=== PATIENT | female | born 1945 | race Caucasian/White ===

== ENCOUNTER → 2017-02-03 | Outpatient (CLI) | payer MEDICARE, OTHER ==
[2017-02-03 14:14] LABS: EKG EKG PERFORMED
[2017-02-03 15:04] LABS: Basophils % (A) 1 %; CH 29.1; CHCM 31.3; Eosinophils # (A) 0.1 k/uL (0-0.7); Eosinophils % (A) 2 %; HCT 40.1 % (34.0-46.0); HGB 12.9 gm/dL (11.4-16.0); Hypochromasia Slight; Luc # (Auto) 0.15; Luc % (Auto) 3; Lymphocytes # (A) 2.9 k/uL (1.0-4.8); Lymphocytes % (A) 47 %; MCH 30.1 pg (25.0-35.0); MCHC 32.3 g/dL (31.0-37.0); MCV 93.2 fL (80.0-100.0); Mean Platelet Volume 6.6; Monocytes # (A) 0.3 k/uL (0-1.0); Monocytes % (A) 4 %; Neutrophils # (A) 2.7 k/uL (1.3-7.7); Neutrophils % (A) 44 %; WBC 6.1 k/uL (3.8-10.6); WBC (Perox) 6.19
[2017-02-03 15:10] LABS: Amorphous Sediment,Urine Rare /hpf; Appearance,Urine Clear (Clear); Bilirubin,Urine Negative (Negative); Glucose,Urine (UA) Negative (Negative); Ketones,Urine Negative (Negative); Leukocyte Esterase,Urine Moderate (Negative); Mucus,Urine Rare /hpf; Nitrite,Urine Negative (Negative); PH, Urine 5.5 (5.0-8.0); Particle Count 2387; Protein,Urine Negative (Negative); RBC,Urine 1 /hpf (0-5); Specific Gravity,Urine 1.012 (1.001-1.035); Squamous Epithelial Cell,Urine 12 /hpf (0-4); UA Billing (MACRO vs. MICRO) MICRO; Urobilinogen,Urine <2.0 mg/dL (<2.0); WBC,Urine 4 /hpf (0-5)
[2017-02-03 15:12] LABS: ALT 32 U/L (9-52); AST 25 U/L (14-36); Alkaline Phosphatase 91 U/L (38-126); Anion Gap 10 mmol/L; Blood Urea Nitrogen 11 mg/dL (7-17); Calcium 9.7 mg/dL (8.4-10.2); Carbon Dioxide 24 mmol/L (22-30); Chloride 106 mmol/L (98-107); Glucose 87 mg/dL (74-99); Non-African American GFR(MDRD) >60 (>60 ml/min/1.73 sqM); Potassium 4.4 mmol/L (3.5-5.1); Sodium 140 mmol/L (137-145); Total Bilirubin 0.4 mg/dL (0.2-1.3); Total Protein 6.7 g/dL (6.3-8.2)
[2017-02-03 15:31] LABS: Partial Thromboplastin Time 20.9 sec (22.0-30.0); Prothrombin Time 9.9 sec (9.0-12.0)
== END ==
LOC: LABWHC1 14:05
PROVIDERS: ATTEND Orthopaedic Surgery
DX: Z01.810 Encounter for preprocedural cardiovascular examination (principal); Z01.812 Encounter for preprocedural laboratory examination; Z51.81 Encounter for therapeutic drug level monitoring; Z79.01 Long term (current) use of anticoagulants
CPT/HCPCS: 80053; 81001; 85025; 85610; 85730; 86850; 86900; 86901; 87070; 93005

== ENCOUNTER 2017-02-12 10:33 | Inpatient (IN) | payer MEDICARE, OTHER ==
[2017-02-04 16:11] VITALS: BMI 31.8
[~2017-02-12 10:33] MED LIST: ACETAMINOPHEN TAB 500 MG TAB PO ONE; CLINDAMYCIN 900 MG in DEXTROSE 5% IN WATER 50 ML IVPB ONE; DEXAMETHASONE SOD PHOSPHATE 10 MG/ML 1 ML VIAL IV ONE; HYDROmorphone 1 MG/ML 1 ML SYRINGE IVP PRN; LIDOCAINE 1% 20 ML VIAL (10MG/ML) FOR IV START INTRADERMA PRN; MELOXICAM 7.5 MG TAB PO ONE; MIDAZOLAM 2 MG/2 ML VIAL IV PRN; ONDANSETRON 4 MG/2 ML VIAL IVP ONE; SCOPOLAMINE 1.5MG/72HR PATCH TRANSDERM ONE; TRANEXAMIC ACID 1,000 MG in SODIUM CHLORIDE 0.9% 100 ML IVPB ONE
[2017-02-12 10:58] VITALS: RESP 16
[2017-02-12] MEDS ORDERED: ROPIVACAINE 246.25 MG, EPINEPHrine 0.5 MG, KETOROLAC 30 MG, cloNIDine HCL/PF 80 MCG, WA... MISCELLANE ONE ×5 (11:02)
[2017-02-12] MEDS: LACTATED RINGERS 1,000 ML IV SCH (11:02)
[2017-02-12] MEDS ORDERED: CLINDAMYCIN 1,800 MG in SODIUM CHLORIDE 0.9% IRRIGATIO 3,000 ML IRRIGATION ONE (12:23)
[2017-02-12] MEDS ORDERED: SODIUM CHLORIDE 0.9% IRRIG 1,000 ML BTL IRRIGATION ONE (12:23)
[2017-02-12] MEDS ORDERED: PROPOFOL 10 MG/ML 20 ML VIAL IV ONE (12:23)
[2017-02-12] MEDS ORDERED: MIDAZOLAM 2 MG/2 ML VIAL ONE (12:23)
[2017-02-12] MEDS ORDERED: HEPARIN SODIUM,PORCINE 10,000 UNIT/ML 1 ML VIAL ONE (12:23)
[2017-02-12] MEDS ORDERED: LACTATED RINGERS 1,000 ML IV ONE (13:24)
--- NOTE | 2017-02-12 13:50 | XR ---
EXAMINATION TYPE: XR Hip Complete RT DATE OF EXAM: 02/12/2017 1:47 PM COMPARISON: NONE HISTORY: Right TECHNIQUE: One view submitted. FINDINGS: There is a prosthetic hip in near anatomic alignment. There is soft tissue edema and emphysema. IMPRESSION: 1. Postoperative change. Appears in near-anatomic alignment.
--- NOTE | 2017-02-12 13:58 | FL ---
EXAMINATION TYPE: FL guidance operating room DATE OF EXAM: 02/12/2017 1:46 PM CLINICAL HISTORY: Right hip replacement TECHNIQUE: Fluoroscopy. COMPARISON: None. FINDINGS: Fluoroscopic guidance was provided during hip replacement procedure performed by Dr. Shahram bean. A total of 37 seconds of fluoroscopic time was utilized during the procedure and 0 spot intraop erative images are acquired. IMPRESSION: As Above.
--- NOTE | 2017-02-12 14:05 | P.OP ---
Date of Procedure: 02/12/17 Preoperative Diagnosis: Severe osteoarthritis right hip Postoperative Diagnosis: Severe osteoarthritis right hip Procedure(s) Performed: Right total hip arthroplasty with a direct anterior approach Implants: Martin and nephew Polarstem size 3 standard Martin [employer] Nephew R3, 3 hole acetabular shell, 48 mm Martin [employer] Nephew reflection 6.5 mm cancellus screw, 20 mm 2 Martin [employer]hew R3, XLPE 20 acetabular liner Martin [employer] Nephew Oxinium femoral head 32 m, +0 All components were press-fit. The articulation is ceramic on polyethylene. Anesthesia: spinal Surgeon: Kurt Douglas Mortgage Underwriter #1: Vadim Sellers Estimated Blood Loss (ml): 130 (55 mL returned with Cell Saver) Pathology: other (Femoral head) Condition: stable Disposition: PACU Indications for Procedure: After failure of conservative treatment we discussed the surgical and nonsurgical treatment options at length. Patient wishes to proceed with a total hip arthroplasty with a direct anterior approach. Complications specific to this procedure were discussed at length, including but not limited to infection, leg length discrepancy, dislocation, and nerve injury. Patient is aware of all these complications and informed consent was obtained Operative Findings: The operative findings are consistent with severe osteoarthritis of the right hip Description of Procedure: Patient was seen and evaluated in the preoperative area, consent was reviewed, and the surgical site was marked with a skin marker. Patient was then brought to the operating room and given prophylactic antibiotics intravenously. 1 g of Tranexamic acid was also given. A spinal anesthetic was administered by the anesthesia department. A [place] catheter was then placed by the nursing staff. The patient was then placed on the [place] table with the bony prominences well- padded. The hip area was then prepped and draped in usual sterile fashion. A universal timeout was then performed, which confirmed the patient's name, surgical site, ALLERGIES, and procedure being performed. Next the incision site was located at 1 cm distal and 1 cm lateral to the anterior superior iliac spine. The skin and subcutaneous tissues were sharply incised. Incision was carefully dissected down to the fascia overlying the tensor fascia thomas muscle. This fascia was then incised in line with the incision. Next, using blunt finger dissection, the tensor fascia thomas muscle was dissected off its investing fascia. The muscle was then carefully retracted laterally with a cobra retractor over the lateral neck of the femur. Next, the circumflex vessels were identified and cauterized using the AquaMantis device. The anterior hip capsule was then exposed. The capsule was then opened and an inverted T fashion. Retention sutures were placed in the inferior arms of the capsule. Cobra retractors were then placed intracapsularly. The proximal femur was then visualized. The femoral neck was then osteotomized appropriate level above the lesser trochanter. Small amount of traction was placed with the [place] table. A small wedge of bone was then removed from the remaining femoral head. Next, using a corkscrew femoral head was easily removed from the acetabulum. On gross visual inspection, the femoral head had complete loss of articular cartilage in multiple periarticular osteophytes. Attention was then turned to the acetabulum. the acetabulum was exposed and any remaining labrum was excised. Sequential reaming of the acetabulum was performed using fluoroscopic guidance. When the appropriate size was reached, a trial was then placed. The position and fit of the trial was checked with fluoroscopy. The trial was then removed. Then, using fluoroscopic guidance, the final implant was impacted at 20 of anteversion and 40 of abduction, and fully seated in the acetabulum. 2 screws were then placed in the acetabulum. Again fluoroscopy was used to check position of the screws. Next, the liner was then impacted, with a 20 elevated liner located in the anterior superior quadrant. Component locking was confirmed. Attention was then directed to the femur. With the aid of the [place] table, the femur was externally rotated to approximately 130, extended, and abducted under the opposite leg. A side hook was then placed under the proximal femur, and the side hook elevator was used to elevate the proximal femur. Retractors were then placed. A capsular release was performed, as well as a release of the conjoined tendon, which afforded excellent visualization of the proximal femur. Next, a box osteotome was used to lateralize the proximal femur. A merchandise displayer was then used to locate the femoral canal. Sequential broaching was then performed with appropriate size which afforded excellent fixation in the proximal femur. A trial was then placed with appropriate head and neck, and the hip was gently reduced with the aid of the [place] table. Fluoroscopy was then used to check position of the components, as well as to ensure equal leg lengths. The hip was then gently dislocated and the trials were then removed. Final implants were then impacted and the hip was again reduced. Final fluoroscopic x-rays confirmed that the components were in anatomic position, as well as equal leg lengths. The hip was also taken through range of motion, and found to be stable. The hip was then copiously irrigated with antibiotic solution with pulsatile lavage. The hip was then irrigated with Irrisept solution. The soft tissues were then injected with a ropivacaine solution, which consisted of 246.25 mg of ropivacaine, 0.5 mg of epinephrine, 30 mg of Toradol, 80 g of clonidine, and 48.45 mL of sterile water, for a total of 100 mL of fluid injected. A second dose of 1 g of Tranexamic acid was also given. the fascia was then closed with 2-0 strata fix suture. The subcutaneous tissue was closed with 3-0 Vicryl. The subcuticular tissue was closed with 3-0 strata fix suture. The skin was then closed with Dermabond tape. The patient was then transferred to the recovery room in stable condition. The dental chairside assistant MAKAYLA Hunt was required due to the complexity of surgery, and the need for skilled front office medical assistant for positioning, draping, exposure, retraction, and closure of the wound.
[2017-02-12] MEDS ORDERED: DIAZEPAM 5 MG TAB PO PRN (14:23)
[2017-02-12] MEDS ORDERED: NALOXONE 0.4 MG/ML 1 ML VIAL IV PRN (14:23)
[2017-02-12] MEDS ORDERED: ONDANSETRON 4 MG/2 ML VIAL IVP PRN (14:23)
[2017-02-12] MEDS ORDERED: MAGNESIUM HYDROXIDE 2,400 MG/10 ML CUP PO PRN (14:23)
[2017-02-12] MEDS ORDERED: HYDROcodone/APAP 5-325MG 1 EACH TAB PO PRN (14:23)
[2017-02-12] MEDS ORDERED: HYDROmorphone 1 MG/ML 1 ML SYRINGE IVP PRN ×3 (14:23)
[2017-02-12] MEDS ORDERED: hydrOXYzine PAMOATE 25 MG CAP PO PRN (14:23)
[2017-02-12] MEDS ORDERED: MEPERIDINE 50 MG/ML SYRINGE IVP ONE (14:40)
[2017-02-12] MEDS ORDERED: TEMAZEPAM 15 MG CAP PO PRN (15:36)
[2017-02-12] MEDS: DIPHENOX-ATROP 2.5-0.025 MG 1 EACH TAB PO PRN (16:03)
[2017-02-12] MEDS: SODIUM CHLORIDE 0.9% 1,000 ML IV SCH (16:04)
[2017-02-12] MEDS: SERTRALINE 50 MG TAB PO SCH (16:04)
--- NOTE | 2017-02-12 16:24 | XR ---
EXAMINATION TYPE: XR Hip Limited RT DATE OF EXAM ORDERED: 02/12/2017 2:51 PM HISTORY: Right hip arthroplasty. COMPARISON: None. FINDINGS: A right arthroplasty has been performed. Prosthetic elements appear in good position. Ther e is some subcutaneous air present. IMPRESSION: STATUS POST RIGHT ARTHROPLASTY.
[2017-02-12] MEDS: ATORVASTATIN 10 MG TAB PO SCH (21:05)
[2017-02-12] MEDS: ASPIRIN 325 MG TAB PO SCH (21:05)
[2017-02-12] MEDS: HYDROcodone/APAP 5-325MG 1 EACH TAB PO PRN (21:06)
[2017-02-12] MEDS: CLINDAMYCIN 900 MG in DEXTROSE 5% IN WATER 50 ML IVPB SCH ×2 (21:09)
[2017-02-12] MEDS: SENNOSIDES-DOCUSATE SODIUM 1 EACH TAB PO SCH (21:10)
[2017-02-13] MEDS: CLINDAMYCIN 900 MG in DEXTROSE 5% IN WATER 50 ML IVPB SCH ×2 (04:21)
[2017-02-13] MEDS: HYDROcodone/APAP 5-325MG 1 EACH TAB PO PRN ×3 (04:45→21:51)
[2017-02-13] MEDS: LACTATED RINGERS 1,000 ML IV SCH (06:22)
[2017-02-13 06:55] LABS: Basophils % (A) 0 %; CH 29.2; CHCM 31.6; Eosinophils % (A) 0 %; HCT 31.2 % (34.0-46.0); HDW 2.36; HGB 10.2 gm/dL (11.4-16.0); Luc # (Auto) 0.15; Luc % (Auto) 2; Lymphocytes # (A) 1.2 k/uL (1.0-4.8); Lymphocytes % (A) 12 %; MCH 30.5 pg (25.0-35.0); MCHC 32.8 g/dL (31.0-37.0); MCV 92.8 fL (80.0-100.0); Mean Platelet Volume 6.8; Monocytes # (A) 0.5 k/uL (0-1.0); Monocytes % (A) 5 %; Neutrophils # (A) 7.6 k/uL (1.3-7.7); Neutrophils % (A) 80 %; RBC 3.36 m/uL (3.80-5.40); RDW 13.3 % (11.5-15.5); WBC 9.5 k/uL (3.8-10.6)
[2017-02-13] MEDS: ASPIRIN 325 MG TAB PO SCH ×2 (07:29→20:23)
[2017-02-13] MEDS: MELOXICAM 7.5 MG TAB PO SCH (07:30)
[2017-02-13] MEDS: SODIUM CHLORIDE 0.9% 1,000 ML IV SCH ×2 (07:31→16:51)
[2017-02-13] MEDS: ALPRAZolam 0.25 MG TAB PO PRN (08:01)
[2017-02-13] MEDS ORDERED: NON-FORMULARY DRUG (Aspirin [Adult Low Dose Aspirin Ec] 81 MG) PO SCH (09:00)
--- NOTE | 2017-02-13 11:27 | P.PN ---
Subjective Principal diagnosis: Status post right hip This is a pleasant 71-year-old female who is status post right total hip arthroplasty. Today's postoperative day #1. The patient is seen and evaluated at bedside this morning. Her pain is under fair control. She has no additional complaints at this time. She wishes to be discharged home tomorrow. Objective - Vital Signs Vital signs: Vital Signs Temp 98.1 F 02/13/17 07:38 Pulse 72 02/13/17 08:04 Resp 16 02/13/17 07:38 BP 103/60 02/13/17 08:40 Pulse Ox 97 02/13/17 07:38 Intake & Output 02/12/17 02/13/17 02/13/17 18:59 06:59 18:59 Intake Total 1657 Output Total 230 1300 Balance 1427 -1300 Weight 81.647 kg Intake: IV 1657 Output: Urine 100 1300 Estimated Blood Loss 130 Other: Voiding Method Indwelling Catheter Indwelling Catheter Indwelling Catheter - Exam The patient does not appear in acute distress. Alert and orientated 3. Dressing is clean dry and intact. Incision appears fine with no erythema or active drainage. Calf is soft and nontender. Good foot and ankle motion without difficulty. Sensation and circulatory status is intact. - Labs CBC & Chem 7: 02/13/17 06:24 Labs: Abnormal Lab Results - Last 24 Hours (Table) 02/13/17 Range/Units 06:24 RBC 3.36 L (3.80-5.40) m/uL Hgb 10.2 L (11.4-16.0) gm/dL Hct 31.2 L (34.0-46.0) % Assessment and Plan (1) Primary osteoarthritis of right hip Status: Acute (2) Status post right hip replacement Status: Acute Plan: Continue with routine postoperative care. Anticoagulation with aspirin. Physical therapy and pain control. Anticipate discharge to home with home care tomorrow.
--- NOTE | 2017-02-13 13:32 | P.CONS ---
History of Present Illness - Reason for Consult Consult date: 02/13/17 Medical management - History of Present Illness This is a 71-year-old female patient of Dr. 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 She recently had vein stripping on the right lower extremity with Dr. Caruso 2 months ago. Patient has been admitted to the hospital under the care of Dr. Kurt Douglas status post right total hip arthroplasty with anterior approach. Patient denies any concerns at this time. Patient is well controlled. Patient did have some low blood pressure readings but she was asymptomatic and able to ambulate. Hemoglobin has tried from 13.5 one month ago to 10.2. She has had good [place] output. She is anticipating discharge home tomorrow. Review of Systems All systems: negative Constitutional: Denies chills, Denies fever Eyes: denies blurred vision, denies pain Ears, nose, mouth and throat: Denies headache, Denies sore throat Cardiovascular: Denies chest pain, Denies shortness of breath Respiratory: Denies cough Gastrointestinal: Denies abdominal pain, Denies diarrhea, Denies nausea, Denies vomiting Genitourinary: Denies dysuria, Denies hematuria Musculoskeletal: Denies myalgias Musculoskeletal: right: hip pain Integumentary: Denies pruritus, Denies rash Neurological: Denies numbness, Denies weakness Psychiatric: Denies anxiety, Denies depression Endocrine: Denies fatigue, Denies weight change Past Medical History Past Medical History: Hyperlipidemia, Osteoarthritis (OA) Additional Past Medical History / Comment(s): hx. chronic diarrhea-possible gluten or lactose problem History of Any Multi-Drug Resistant Organisms: None Reported Past Surgical History: Bladder Surgery, Breast Surgery, Cholecystectomy, Orthopedic Surgery Additional Past Surgical History / Comment(s): Bilateral bunionectomy, cyst off back; colonoscopy, bladder suspension, cataract surg., breast biopsies-cyst, right lower extremity vein stripping done by Dr. Caruso 2 months ago Past Anesthesia/Blood Transfusion Reactions: Motion Sickness, Postoperative Nausea & Vomiting (PONV) Past Psychological History: Anxiety, Depression Smoking Status: Former smoker Past Alcohol Use History: None Reported Additional Past Alcohol Use History / Comment(s): quit smoking 1999, smoked < ppd since age of 17. She denies any medical marijuana, marijuana or street drug use. She lives at home with her . She does not use any aids for ambulation. Past Drug Use History: None Reported - Past Family History Mother Family Medical History: No Reported History Additional Family Medical History / Comment(s): Mother at age 72 with history of myocardial infarction and CVA. Father Additional Family Medical History / Comment(s): Father at age 64 had multiple CVAs with history of diabetes. Brother(s) Additional Family Medical History / Comment(s): Patient has 1 brother with no major medical problems. Sister(s) Additional Family Medical History / Comment(s): Patient has 2 sisters. One sister has history of vertigo and diarrhea. One sister has hypertension. Son(s) Additional Family Medical History / Comment(s): Patient has 3 sons. One has high iron levels. One is alcoholic. Medications and Allergies Home Medications Medication Instructions Recorded Confirmed Type ALPRAZolam [Xanax] 0.25 mg PO BID PRN 02/26/16 02/12/17 History Acetaminophen-Codeine 300-30mg 1 tab PO TID PRN 02/26/16 02/12/17 History [Tylenol #3] Aspirin [Adult Low Dose Aspirin EC] 81 mg PO DAILY 02/26/16 02/12/17 History Calcium Carbonate [Calcium] 1,200 mg PO DAILY 02/26/16 02/12/17 History Diphenoxylate HCl/Atropine 1 tab PO TID PRN 02/26/16 02/12/17 History [Lomotil] Ergocalciferol [Vitamin D2] 50,000 unit PO Q30D 02/26/16 02/12/17 History Simvastatin [Zocor] 20 mg PO HS 02/26/16 02/12/17 History Temazepam [Restoril] 15 mg PO HS PRN 02/26/16 02/12/17 History Ubidecarenone [Co Q-10] 100 mg PO DAILY 02/26/16 02/12/17 History Sertraline [Zoloft] 50 mg PO DAILY@1500 02/04/17 02/12/17 History Sulfamethoxazole/Trimethoprim 1 tab PO BID 02/12/17 02/12/17 History [Sulfamethoxazole-Tmp Ds Tablet] Allergies Allergy/AdvReac Type Severity Reaction Status Date / Time Penicillins Allergy swelling,skin Verified 02/12/17 14:34 blisters Physical Exam Vitals: Vital Signs Temp Pulse Resp BP BP BP Pulse Ox 02/13/17 08:40 103/60 98/52 02/13/17 08:04 72 101/61 02/13/17 07:38 98.1 F 72 16 87/55 97 02/13/17 02:38 97.0 F L 71 16 101/52 96 02/12/17 17:45 99/69 02/12/17 17:30 86/35 02/12/17 17:15 100/64 02/12/17 17:00 101/56 02/12/17 16:45 104/60 02/12/17 16:30 94/65 02/12/17 16:15 110/88 02/12/17 16:00 121/69 02/12/17 15:45 97/59 02/12/17 15:30 97.0 F L 90 16 110/60 99 02/12/17 14:48 97 16 106/52 98 02/12/17 14:30 90 16 113/58 98 02/12/17 14:20 98.5 F 93 16 107/52 99 Intake and Output 02/12/17 02/13/17 02/13/17 22:59 06:59 14:59 Intake Total 100 Output Total 1300 Balance 100 -1300 Intake: IV 100 Output: Urine 1300 Other: Voiding Method Indwelling Catheter Indwelling Catheter Weight 81.647 kg Gen: This is a 71-year-old female. She is resting in a chair at the bedside and appears to be in no acute distress. HEENT: Head is atraumatic, normocephalic. Pupils equal, round. Sclerae is anicteric. NECK: Supple. No JVD. No lymphadenopathy. No thyromegaly. LUNGS: Clear to auscultation. No wheezes or rhonchi. No intercostal retractions. HEART: Regular rate and rhythm. No murmur. ABDOMEN: Soft. Bowel sounds are present. No masses. No tenderness. EXTREMITIES: No pedal edema. No calf tenderness. Dressing to the right hip is dry and intact. No significant erythema or edema NEUROLOGICAL: Patient is awake, alert and oriented x3. Cranial nerves 2 through 12 are grossly intact. Results CBC & Chem 7: 04/08/17 06:24 Labs: Abnormal Lab Results - Last 24 Hours (Table) 02/13/17 Range/Units 06:24 RBC 3.36 L (3.80-5.40) m/uL Hgb 10.2 L (11.4-16.0) gm/dL Hct 31.2 L (34.0-46.0) % Assessment and Plan Plan: 1. Osteoarthritis of the right hip status post right total hip arthroplasty with anterior approach. Continue current pain management, physical therapy, incentive spirometry, DVT prophylaxis. 2. Hyperlipidemia. Continue Lipitor. 3. Chronic diarrhea with gluten and lactose intolerance. Continue special diet and Lomotil as needed. Patient will be admitted to the hospital for a minimum of 2 night stay. Discharge plan: Return home tomorrow Impression and plan of care have been directed as dictated by the signing physician. Cary Palomo nurse practitioner acting as scribe for signing physician. Time with Patient: Greater than 30
[2017-02-13] MEDS ORDERED: SERTRALINE 50 MG TAB PO SCH (15:00)
[2017-02-13] MEDS: SERTRALINE 50 MG TAB PO SCH (16:50)
[2017-02-13] MEDS: SENNOSIDES-DOCUSATE SODIUM 1 EACH TAB PO SCH (20:23)
[2017-02-13] MEDS: ATORVASTATIN 10 MG TAB PO SCH (20:23)
[2017-02-14] MEDS: HYDROcodone/APAP 5-325MG 1 EACH TAB PO PRN (02:55)
[2017-02-14] MEDS: LACTATED RINGERS 1,000 ML IV SCH (05:11)
[2017-02-14] MEDS ORDERED: HYDROcodone/APAP 7.5-325MG 1 EACH TAB PO PRN (07:44)
[2017-02-14] MEDS: MELOXICAM 7.5 MG TAB PO SCH (08:34)
[2017-02-14] MEDS: ASPIRIN 325 MG TAB PO SCH ×2 (08:34→21:42)
[2017-02-14] MEDS: HYDROcodone/APAP 7.5-325MG 1 EACH TAB PO PRN ×3 (08:34→20:21)
[2017-02-14] MEDS: DIPHENOX-ATROP 2.5-0.025 MG 1 EACH TAB PO PRN (08:35)
--- NOTE | 2017-02-14 09:55 | P.DS ---
Providers Date of admission: 02/12/17 10:33 Expected date of discharge: 02/14/17 Attending physician: Kurt Douglas Consults: 02/12/17 14:23 Consult Physician Routine Consulting Provider: Dominic Mcdonald Reason/Comments: Medical management Do you want consulting provider notified?: Yes Primary care physician: Dominic Mcdonald - Discharge Diagnosis(es) (1) Primary osteoarthritis of right hip Current Visit: Yes Status: Acute (2) Status post right hip replacement Current Visit: Yes Status: Acute Hospital Course: This is a pleasant 71-year-old female who was last seen in our office with complaints of right hip pain. Patient has known history of degenerative arthritis of the right hip and presented to discuss options. After discussion consideration the patient elected to proceed with a right total hip arthroplasty. Patient was seen preoperatively medically cleared for surgery by her primary care physician. Patient was admitted to [facility] and underwent right total hip arthroplasty. The procedure was performed without complications or sequelae. The patient has done well postoperatively. pain has been are reasonably controlled and is progressing with physical therapy. The patient states that she had some nausea this morning. She states that she did have 1 episode of emesis and diarrhea. She states that this is not a typical for her with her history of IBS. She was given a dose of Zofran and her nausea has resolved. The patient appears comfortable and in no acute distress. Dressing is clean dry and intact. Incision is fine with no erythema or active drainage. Calf is soft and nontender. The patient has good foot and ankle motion without difficulty. Lower extremities are neurovascularly intact. The patient would like to stay until tomorrow if her symptoms do not resolve. She may be discharged home later this afternoon if she is feeling better and she is cleared medically. Pertinent Studies: Laboratory Tests 02/13/17 06:24 WBC 9.5 RBC 3.36 L Hgb 10.2 L Hct 31.2 L MCV 92.8 MCH 30.5 MCHC 32.8 Patient Condition at Discharge: Good Plan - Discharge Summary New Discharge Prescriptions: Aspirin 325 mg PO BID #60 tab HYDROcodone/APAP 7.5-325MG [[place] 7.5] 1 - 2 each PO Q6HR PRN #90 tab PRN Reason: Pain Sennosides-Docusate Sodium [Senokot-S] 2 tab PO DAILY #60 tablet Discharge Medication List ALPRAZolam [Xanax] 0.25 mg PO BID PRN 02/26/16 [History] Acetaminophen-Codeine 300-30mg [Tylenol #3] 1 tab PO TID PRN 02/26/16 [History] Aspirin [Adult Low Dose Aspirin EC] 81 mg PO DAILY 02/26/16 [History] Calcium Carbonate [Calcium] 1,200 mg PO DAILY 02/26/16 [History] Diphenoxylate HCl/Atropine [Lomotil] 1 tab PO TID PRN 02/26/16 [History] Ergocalciferol [Vitamin D2] 50,000 unit PO Q30D 02/26/16 [History] Simvastatin [Zocor] 20 mg PO HS 02/26/16 [History] Temazepam [Restoril] 15 mg PO HS PRN 02/26/16 [History] Ubidecarenone [Co Q-10] 100 mg PO DAILY 02/26/16 [History] Sertraline [Zoloft] 50 mg PO DAILY@1500 02/04/17 [History] Sulfamethoxazole/Trimethoprim [Sulfamethoxazole-Tmp Ds Tablet] 1 tab PO BID 05/24 [History] Aspirin 325 mg PO BID #60 tab 02/14/17 [Rx] HYDROcodone/APAP 7.5-325MG [[place] 7.5] 1 - 2 each PO Q6HR PRN #90 tab 02/14/17 [ Rx] Sennosides-Docusate Sodium [Senokot-S] 2 tab PO DAILY #60 tablet 02/14/17 [Rx] Follow up Appointment(s)/Referral(s): [facility], [NON-STAFF] - 1 Week Kurt Douglas DO [Doctor of Osteopathic Medicine] - 2 Weeks Activity/Diet/Wound Care/Special Instructions: Weightbearing as tolerated with walker Follow hip precautions and use abductor pillow as instructed Daily dressing changes Keep incision clean and dry Hold Tylenol No. 3 while taking [place]. Hold aspirin 81 mg will taking aspirin 325 mg [facility] with questions or concerns [phone] Discharge Disposition: HOME WITH HOME HEALTH SERVICES
[2017-02-14 11:58] LABS: Anion Gap 9 mmol/L; Blood Urea Nitrogen 7 mg/dL (7-17); Calcium 9.2 mg/dL (8.4-10.2); Carbon Dioxide 23 mmol/L (22-30); Chloride 108 mmol/L (98-107); Glucose 96 mg/dL (74-99); Non-African American GFR(MDRD) >60 (>60 ml/min/1.73 sqM); Potassium 4.4 mmol/L (3.5-5.1); Sodium 140 mmol/L (137-145)
--- NOTE | 2017-02-14 12:03 | P.PN ---
Subjective This is a 71-year-old female patient of Dr. 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 She recently had vein stripping on the right lower extremity with Dr. Caruso 2 months ago. Patient has been admitted to the hospital under the care of Dr. Kurt Douglas status post right total hip arthroplasty with anterior approach. Patient denies any concerns at this time. Patient is well controlled. Patient did have some low blood pressure readings but she was asymptomatic and able to ambulate. Hemoglobin has tried from 13.5 one month ago to 10.2. She has had good [place] output. She is anticipating discharge home tomorrow. 02/14: Blood pressure is stable. Patient had some vomiting and diarrhea today. Pain medicine was increased. Zofran is available as needed for nausea and vomiting. Patient is on Lomotil. Anticipate discharge home tomorrow Objective - Vital Signs Vital signs: Vital Signs Temp 98.1 F 02/13/17 07:38 Pulse 72 02/13/17 08:04 Resp 16 02/13/17 07:38 BP 103/60 02/13/17 08:40 Pulse Ox 97 02/13/17 07:38 Intake & Output 02/12/17 02/13/17 02/13/17 18:59 06:59 18:59 Intake Total 1657 880 Output Total 230 1300 Balance 1427 -1300 880 Weight 81.647 kg Intake: IV 1657 400 Sodium Chloride 0.9% 1, 400 000 ml @ 50 mls/hr IV . Q20H [facility] Rx#:[id number] Oral 480 Output: Urine 100 1300 Estimated Blood Loss 130 Other: Voiding Method Indwelling Catheter Indwelling Catheter Indwelling Catheter - Exam Gen: This is a 71-year-old female. She is resting in a chair at the bedside and appears to be in no acute distress. HEENT: Head is atraumatic, normocephalic. Pupils equal, round. Sclerae is anicteric. NECK: Supple. No JVD. No lymphadenopathy. No thyromegaly. LUNGS: Clear to auscultation. No wheezes or rhonchi. No intercostal retractions. HEART: Regular rate and rhythm. No murmur. ABDOMEN: Soft. Bowel sounds are present. No masses. No tenderness. EXTREMITIES: No pedal edema. No calf tenderness. Dressing to the right hip is dry and intact. No significant erythema or edema NEUROLOGICAL: Patient is awake, alert and oriented x3. Cranial nerves 2 through 12 are grossly intact. - Labs CBC & Chem 7: 02/13/17 06:24 02/14/17 11:05 Labs: Abnormal Lab Results - Last 24 Hours (Table) 02/13/17 Range/Units 06:24 RBC 3.36 L (3.80-5.40) m/uL Hgb 10.2 L (11.4-16.0) gm/dL Hct 31.2 L (34.0-46.0) % Assessment and Plan Plan: 1. Osteoarthritis of the right hip status post right total hip arthroplasty with anterior approach. Continue current pain management, physical therapy, incentive spirometry, DVT prophylaxis. 2. Hyperlipidemia. Continue Lipitor. 3. Chronic diarrhea with gluten and lactose intolerance. Continue special diet and Lomotil as needed. Discharge plan: Return home tomorrow Impression and plan of care have been directed as dictated by the signing physician. Cary Palomo nurse practitioner acting as scribe for signing physician. Time with Patient: Greater than 30
[2017-02-14] MEDS: SERTRALINE 50 MG TAB PO SCH (15:02)
[2017-02-14] MEDS: SENNOSIDES-DOCUSATE SODIUM 1 EACH TAB PO SCH (21:42)
[2017-02-14] MEDS: ATORVASTATIN 10 MG TAB PO SCH (21:42)
[2017-02-15] MEDS: HYDROcodone/APAP 7.5-325MG 1 EACH TAB PO PRN ×3 (01:21→12:32)
[2017-02-15] MEDS: SODIUM CHLORIDE 0.9% 1,000 ML IV SCH (03:58)
[2017-02-15] MEDS: LACTATED RINGERS 1,000 ML IV SCH (05:53)
[2017-02-15 07:19] LABS: Basophils % (A) 1 %; CH 28.9; CHCM 31.4; Eosinophils # (A) 0.1 k/uL (0-0.7); Eosinophils % (A) 2 %; HCT 30.8 % (34.0-46.0); HDW 2.38; Luc # (Auto) 0.13; Luc % (Auto) 2; Lymphocytes # (A) 1.8 k/uL (1.0-4.8); Lymphocytes % (A) 29 %; MCH 30.1 pg (25.0-35.0); MCHC 32.5 g/dL (31.0-37.0); MCV 92.6 fL (80.0-100.0); Mean Platelet Volume 6.9; Monocytes # (A) 0.3 k/uL (0-1.0); Monocytes % (A) 6 %; Neutrophils # (A) 3.8 k/uL (1.3-7.7); Neutrophils % (A) 61 %; RBC 3.32 m/uL (3.80-5.40); RDW 13.2 % (11.5-15.5); WBC 6.3 k/uL (3.8-10.6); WBC (Perox) 6.58
[2017-02-15 08:40] VITALS: BP 97/51; PULSE 91; TEMP 97.3
[2017-02-15] MEDS: MELOXICAM 7.5 MG TAB PO SCH (08:41)
[2017-02-15] MEDS: ASPIRIN 325 MG TAB PO SCH (08:41)
[2017-02-15] MEDS: ALPRAZolam 0.25 MG TAB PO PRN (08:44)
[2017-02-15] MEDS: DIPHENOX-ATROP 2.5-0.025 MG 1 EACH TAB PO PRN (08:44)
--- NOTE | 2017-02-15 11:25 | P.PN ---
Subjective Principal diagnosis: Status post right hip This is a pleasant 71-year-old female who is status post right total hip arthroplasty. Today's postoperative day #2. The patient is seen and evaluated at bedside this morning. She is feeling much better today. Nausea has resolved. Her pain is under better control at this point. She has no new complaints at this time. Objective - Vital Signs Vital signs: Vital Signs Temp 97.3 F L 02/15/17 07:00 Pulse 91 02/15/17 08:00 Resp 16 02/15/17 08:00 BP 97/51 02/15/17 07:00 Pulse Ox 95 02/15/17 07:00 Intake & Output 02/14/17 02/15/17 02/15/17 18:59 06:59 18:59 Intake Total 790 Balance 790 Intake: Oral 790 Other: Voiding Method Toilet Toilet Toilet # Voids 1 2 - Exam The patient does not appear in acute distress. Alert and orientated 3. Dressing is clean dry and intact. Incision appears fine with no erythema or active drainage. Calf is soft and nontender. Good foot and ankle motion without difficulty. Sensation and circulatory status is intact. - Labs CBC & Chem 7: 02/15/17 06:48 02/14/17 11:05 Labs: Abnormal Lab Results - Last 24 Hours (Table) 02/14/17 02/15/17 Range/Units 11:05 06:48 RBC 3.32 L (3.80-5.40) m/uL Hgb 10.0 L (11.4-16.0) gm/dL Hct 30.8 L (34.0-46.0) % Chloride 108 H (98-107) mmol/L Assessment and Plan (1) Primary osteoarthritis of right hip Status: Acute (2) Status post right hip replacement Status: Acute Plan: Continue with routine postoperative care. Anticoagulation with aspirin. Physical therapy and pain control. The patient is orthopedic stable for discharge to home today. Please refer to discharge summary dictated yesterday.
--- NOTE | 2017-02-15 12:47 | P.PN ---
Subjective This is a 71-year-old female patient of Dr. 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 She recently had vein stripping on the right lower extremity with Dr. Caruso 2 months ago. Patient has been admitted to the hospital under the care of Dr. Kurt Douglas status post right total hip arthroplasty with anterior approach. Patient denies any concerns at this time. Patient is well controlled. Patient did have some low blood pressure readings but she was asymptomatic and able to ambulate. Hemoglobin has tried from 13.5 one month ago to 10.2. She has had good [place] output. She is anticipating discharge home tomorrow. 02/14: Blood pressure is stable. Patient had some vomiting and diarrhea today. Pain medicine was increased. Zofran is available as needed for nausea and vomiting. Patient is on Lomotil. Anticipate discharge home tomorrow 02/15: Nausea and diarrhea are improved. Vital signs are stable. She has been afebrile. Patient is controlled with oral medications. Patient will be discharged today in stable condition. She is on aspirin for DVT prophylaxis. Objective - Vital Signs Vital signs: Vital Signs Temp 97.3 F L 02/15/17 07:00 Pulse 91 02/15/17 08:00 Resp 16 02/15/17 08:00 BP 97/51 02/15/17 07:00 Pulse Ox 95 02/15/17 07:00 Intake & Output 02/14/17 02/15/17 02/15/17 18:59 06:59 18:59 Intake Total 790 Balance 790 Intake: Oral 790 Other: Voiding Method Toilet Toilet Toilet # Voids 1 2 - Exam Gen: This is a 71-year-old female. She is resting in a chair at the bedside and appears to be in no acute distress. HEENT: Head is atraumatic, normocephalic. Pupils equal, round. Sclerae is anicteric. NECK: Supple. No JVD. No lymphadenopathy. No thyromegaly. LUNGS: Clear to auscultation. No wheezes or rhonchi. No intercostal retractions. HEART: Regular rate and rhythm. No murmur. ABDOMEN: Soft. Bowel sounds are present. No masses. No tenderness. EXTREMITIES: No pedal edema. No calf tenderness. Dressing to the right hip is dry and intact. No significant erythema or edema NEUROLOGICAL: Patient is awake, alert and oriented x3. Cranial nerves 2 through 12 are grossly intact. - Labs CBC & Chem 7: 02/15/17 06:48 02/14/17 11:05 Labs: Abnormal Lab Results - Last 24 Hours (Table) 02/14/17 02/15/17 Range/Units 11:05 06:48 RBC 3.32 L (3.80-5.40) m/uL Hgb 10.0 L (11.4-16.0) gm/dL Hct 30.8 L (34.0-46.0) % Chloride 108 H (98-107) mmol/L Assessment and Plan Plan: 1. Osteoarthritis of the right hip status post right total hip arthroplasty with anterior approach. Continue current pain management, physical therapy, incentive spirometry, DVT prophylaxis. 2. Hyperlipidemia. Continue Lipitor. 3. Chronic diarrhea with gluten and lactose intolerance. Continue special diet and Lomotil as needed. Discharge plan: Return home Impression and plan of care have been directed as dictated by the signing physician. Cary Palomo nurse practitioner acting as scribe for signing physician. Time with Patient: Greater than 30
== END 2017-02-15 14:41 | disposition home health service (06) | DRG 470 ==
LOC: 2ORMAIN 10:33 → 3SUR 14:30
PROVIDERS: ADMIT Orthopaedic Surgery; ATTEND Orthopaedic Surgery
PROC: 0SR904A Replacement of Right Hip Joint with Ceramic on Polyethylene Synthetic Substitute, Uncemented, Open Approach (ICD-10-PCS; principal; 2017-02-12 12:30)
DX: M16.11 Unilateral primary osteoarthritis, right hip (principal); I95.9 Hypotension, unspecified; F32.9 Major depressive disorder, single episode, unspecified; E73.9 Lactose intolerance, unspecified; E78.5 Hyperlipidemia, unspecified; F41.9 Anxiety disorder, unspecified; K52.9 Noninfective gastroenteritis and colitis, unspecified; H40.9 Unspecified glaucoma; R11.2 Nausea with vomiting, unspecified; Z79.82 Long term (current) use of aspirin; Z79.899 Other long term (current) drug therapy; Z87.891 Personal history of nicotine dependence; Z88.0 Allergy status to penicillin; Z82.49 Family history of ischemic heart disease and other diseases of the circulatory system
CPT/HCPCS: 73501; 73502; 80048; 85025; 86850; 86891; 86900; 86901; 88300

== ENCOUNTER 2017-02-27 09:32 | Observation (INO) | payer MEDICARE, OTHER ==
[2017-02-27] MEDS ORDERED: MORPHINE SULFATE 4 MG/ML SYRINGE IV STA (10:25)
--- NOTE | 2017-02-27 10:29 | ED ---
General Adult HPI - General Chief complaint: Extremity Problem,Nontraumatic Stated complaint: poss blood clot Time Seen by Provider: 02/27/17 10:05 Source: patient, RN notes reviewed Mode of arrival: wheelchair Limitations: no limitations - History of Present Illness Initial comments: Patient is a pleasant 71-year-old female presenting to the emergency department complaining of right leg pain. Patient did have surgery 2 weeks ago, hip replacement. Patient had an episode of vomiting 6 days ago with sudden onset of swelling of the right anterior hip. Patient was told to discontinue physical therapy. Patient states discomfort has worsened since that time. Patient did not take her pain medicine today. Patient states there is some extension down the entire leg. No chest pain or dyspnea. No fevers. No redness. - Related Data Home Medications Medication Instructions Recorded Confirmed ALPRAZolam [Xanax] 0.25 mg PO BID PRN 02/26/16 02/27/17 Acetaminophen-Codeine 300-30mg 1 tab PO TID PRN 02/26/16 02/27/17 [Tylenol #3] Calcium Carbonate [Calcium] 1,200 mg PO DAILY 02/26/16 02/27/17 Diphenoxylate HCl/Atropine 1 tab PO TID PRN 02/26/16 02/27/17 [Lomotil] Ergocalciferol [Vitamin D2] 50,000 unit PO Q30D 02/26/16 02/27/17 Simvastatin [Zocor] 20 mg PO HS 02/26/16 02/27/17 Temazepam [Restoril] 15 mg PO HS PRN 02/26/16 02/27/17 Ubidecarenone [Co Q-10] 100 mg PO DAILY 02/26/16 02/27/17 Sertraline [Zoloft] 50 mg PO DAILY 02/04/17 02/27/17 Aspirin EC [Ecotrin] 325 mg PO BID 02/27/17 02/27/17 HYDROcodone/APAP 7.5-325MG [[place] 2 tab PO Q6HR PRN 02/27/17 02/27/17 7.5] Allergies Allergy/AdvReac Type Severity Reaction Status Date / Time Penicillins Allergy Swelling/Skin Verified 02/27/17 12:48 Blisters Review of Systems ROS Statement: Those systems with pertinent positive or pertinent negative responses have been documented in the HPI. ROS Other: All systems not noted in ROS Statement are negative. Constitutional: Denies: fever Eyes: Denies: eye pain ENT: Denies: ear pain Respiratory: Denies: cough Cardiovascular: Denies: palpitations Endocrine: Denies: fatigue Gastrointestinal: Denies: abdominal pain Genitourinary: Denies: dysuria Musculoskeletal: Denies: back pain Skin: Denies: rash Past Medical History Past Medical History: Hyperlipidemia, Osteoarthritis (OA) Additional Past Medical History / Comment(s): hx. chronic diarrhea-possible gluten or lactose problem History of Any Multi-Drug Resistant Organisms: None Reported Past Surgical History: Bladder Surgery, Breast Surgery, Cholecystectomy, Joint Replacement, Orthopedic Surgery Additional Past Surgical History / Comment(s): Bilateral bunionectomy, cyst off back; colonoscopy, bladder suspension, cataract surg., breast biopsies-cyst, right lower extremity vein stripping done by Dr. Caruso 2 months ago Past Anesthesia/Blood Transfusion Reactions: Motion Sickness, Postoperative Nausea & Vomiting (PONV) Past Psychological History: Anxiety, Depression Smoking Status: Former smoker Past Alcohol Use History: None Reported Additional Past Alcohol Use History / Comment(s): quit smoking 1999, smoked < ppd since age of 17. She denies any medical marijuana, marijuana or street drug use. She lives at home with her . She does not use any aids for ambulation. Past Drug Use History: None Reported - Past Family History Mother Family Medical History: No Reported History Additional Family Medical History / Comment(s): Mother at age 72 with history of myocardial infarction and CVA. Father Additional Family Medical History / Comment(s): Father at age 64 had multiple CVAs with history of diabetes. Brother(s) Additional Family Medical History / Comment(s): Patient has 1 brother with no major medical problems. Sister(s) Additional Family Medical History / Comment(s): Patient has 2 sisters. One sister has history of vertigo and diarrhea. One sister has hypertension. Son(s) Additional Family Medical History / Comment(s): Patient has 3 sons. One has high iron levels. One is alcoholic. General Exam Limitations: no limitations General appearance: alert, in no apparent distress Head exam: Present: atraumatic Eye exam: Present: normal appearance, PERRL ENT exam: Present: normal oropharynx Neck exam: Present: normal inspection Respiratory exam: Present: normal lung sounds bilaterally Cardiovascular Exam: Present: regular rate, normal rhythm Expanded Peripheral pulses: 2+: Dorsalis Pedis (R), Dorsalis Pedis (L) GI/Abdominal exam: Present: soft. Absent: tenderness Extremities exam: Present: calf tenderness, other (Right anterior incision is clean and dry and intact. There is swelling and tenderness, moderate beneath this. This appears consistent with hematoma.) Neurological exam: Present: alert. Absent: motor sensory deficit Psychiatric exam: Present: normal affect, normal mood Skin exam: Absent: erythema Course Vital Signs 02/27/17 09:45 Temperature 97.5 F L Pulse Rate 72 Respiratory 18 Rate Blood Pressure 107/69 O2 Sat by Pulse 100 Oximetry - Reevaluation(s) Reevaluation #1: 02/27/17 13:20 Case was discussed with practitioner Cathryn Smith who will call back. 02/27/17 13:34 Case again discussed with Cathryn Smith who recommends admission and Dr. Douglas will see for possible hematoma drainage. EKG Findings - EKG Comments: EKG Findings:: Normal sinus rhythm at 82. MD 134. QRS 72. QT 390. QTC 455. Normal axis. Normal QRS. Normal ST-T. Medical Decision Making - Lab Data Result diagrams: 02/27/17 10:35 02/27/17 10:35 Lab Results 02/27/17 02/27/17 02/27/17 Range/Units 10:35 10:35 10:35 WBC 9.6 (3.8-10.6) k/uL RBC 4.09 (3.80-5.40) m/uL Hgb 12.0 (11.4-16.0) gm/dL Hct 37.6 (34.0-46.0) % MCV 91.8 (80.0-100.0) fL MCH 29.3 (25.0-35.0) pg MCHC 31.9 (31.0-37.0) g/dL RDW 13.7 (11.5-15.5) % Plt Count 514 H D (150-450) k/uL Neutrophils % 70 % Lymphocytes % 21 % Monocytes % 4 % Eosinophils % 2 % Basophils % 1 % Neutrophils # 6.7 (1.3-7.7) k/uL Lymphocytes # 2.0 (1.0-4.8) k/uL Monocytes # 0.4 (0-1.0) k/uL Eosinophils # 0.2 (0-0.7) k/uL Basophils # 0.1 (0-0.2) k/uL PT 10.2 (9.0-12.0) sec INR 1.0 (<1.1) APTT 22.0 (22.0-30.0) sec Sodium 140 (137-145) mmol/L Potassium 4.1 (3.5-5.1) mmol/L Chloride 105 (98-107) mmol/L Carbon Dioxide 22 (22-30) mmol/L Anion Gap 13 mmol/L BUN 10 (7-17) mg/dL Creatinine 0.65 (0.52-1.04) mg/dL Est GFR (MDRD) Af Amer >60 (>60 ml/min/1.73 sqM) Est GFR (MDRD) Non-Af >60 (>60 ml/min/1.73 sqM) Glucose 102 H (74-99) mg/dL Calcium 10.0 (8.4-10.2) mg/dL Total Bilirubin 0.6 (0.2-1.3) mg/dL AST 24 (14-36) U/L ALT 30 (9-52) U/L Alkaline Phosphatase 151 H (38-126) U/L Total Creatine Kinase (30-135) U/L CK-MB (CK-2) (0.0-2.4) ng/mL CK-MB (CK-2) Rel Index Troponin I (0.000-0.034) ng/mL Total Protein 7.2 (6.3-8.2) g/dL Albumin 4.2 (3.5-5.0) g/dL 02/27/17 Range/Units 10:35 WBC (3.8-10.6) k/uL RBC (3.80-5.40) m/uL Hgb (11.4-16.0) gm/dL Hct (34.0-46.0) % MCV (80.0-100.0) fL MCH (25.0-35.0) pg MCHC (31.0-37.0) g/dL RDW (11.5-15.5) % Plt Count (150-450) k/uL Neutrophils % % Lymphocytes % % Monocytes % % Eosinophils % % Basophils % % Neutrophils # (1.3-7.7) k/uL Lymphocytes # (1.0-4.8) k/uL Monocytes # (0-1.0) k/uL Eosinophils # (0-0.7) k/uL Basophils # (0-0.2) k/uL PT (9.0-12.0) sec INR (<1.1) APTT (22.0-30.0) sec Sodium (137-145) mmol/L Potassium (3.5-5.1) mmol/L Chloride (98-107) mmol/L Carbon Dioxide (22-30) mmol/L Anion Gap mmol/L BUN (7-17) mg/dL Creatinine (0.52-1.04) mg/dL Est GFR (MDRD) Af Amer (>60 ml/min/1.73 sqM) Est GFR (MDRD) Non-Af (>60 ml/min/1.73 sqM) Glucose (74-99) mg/dL Calcium (8.4-10.2) mg/dL Total Bilirubin (0.2-1.3) mg/dL AST (14-36) U/L ALT (9-52) U/L Alkaline Phosphatase (38-126) U/L Total Creatine Kinase 63 (30-135) U/L CK-MB (CK-2) 0.6 (0.0-2.4) ng/mL CK-MB (CK-2) Rel Index 1.0 Troponin I <0.012 (0.000-0.034) ng/mL Total Protein (6.3-8.2) g/dL Albumin (3.5-5.0) g/dL - Radiology Data Radiology results: report reviewed (Ultrasound right upper leg shows hematoma. Doppler Ultrasound of the leg shows no evidence of DVT.), image reviewed (X-ray the right hip shows no acute process) Disposition Clinical Impression: Postoperative complication, Leg hematoma Disposition: ADMITTED IP TO THIS HOSP
[2017-02-27] MEDS ORDERED: MORPHINE SULFATE 10 MG/ML SYRINGE IM STA (10:39)
[2017-02-27] MEDS ORDERED: MORPHINE SULFATE 10 MG/ML SYRINGE IVP STA (10:40)
[2017-02-27 10:55] LABS: Basophils # (A) 0.1 k/uL (0-0.2); Basophils % (A) 1 %; CH 29.9; CHCM 32.7; Eosinophils # (A) 0.2 k/uL (0-0.7); Eosinophils % (A) 2 %; HCT 37.6 % (34.0-46.0); HDW 2.41; Luc % (Auto) 2; Lymphocytes % (A) 21 %; MCH 29.3 pg (25.0-35.0); MCHC 31.9 g/dL (31.0-37.0); MCV 91.8 fL (80.0-100.0); Mean Platelet Volume 6.4; Monocytes # (A) 0.4 k/uL (0-1.0); Monocytes % (A) 4 %; Neutrophils # (A) 6.7 k/uL (1.3-7.7); Neutrophils % (A) 70 %; RBC 4.09 m/uL (3.80-5.40); RDW 13.7 % (11.5-15.5); WBC 9.6 k/uL (3.8-10.6); WBC (Perox) 9.85
[2017-02-27 10:59] LABS: Prothrombin Time 10.2 sec (9.0-12.0)
[2017-02-27 11:07] LABS: ALT 30 U/L (9-52); AST 24 U/L (14-36); Alkaline Phosphatase 151 U/L (38-126); Anion Gap 13 mmol/L; Blood Urea Nitrogen 10 mg/dL (7-17); Carbon Dioxide 22 mmol/L (22-30); Chloride 105 mmol/L (98-107); Glucose 102 mg/dL (74-99); Non-African American GFR(MDRD) >60 (>60 ml/min/1.73 sqM); Potassium 4.1 mmol/L (3.5-5.1); Sodium 140 mmol/L (137-145); Total Bilirubin 0.6 mg/dL (0.2-1.3); Total Protein 7.2 g/dL (6.3-8.2)
[2017-02-27 11:20] LABS: Creatine Kinase 63 U/L (30-135)
[2017-02-27 11:34] LABS: Creatine Kinase MB 0.6 ng/mL (0.0-2.4); Troponin I <0.012 ng/mL (0.000-0.034)
--- NOTE | 2017-02-27 12:23 | US ---
EXAMINATION TYPE: US extremity nonvasc mass RT DATE OF EXAM: 02/27/2017 11:26 AM COMPARISON: no CLINICAL HISTORY: Hip replacement 2 weeks prior, pain, swelling and swelling at incision Complex fluid collection at incision measuring 12.0 x 2.1 x 6.3cm, this fluid collectin is non-vascul ar. IMPRESSION: Probable hematoma right hip at the incision.
--- NOTE | 2017-02-27 12:41 | US ---
EXAMINATION TYPE: US venous doppler duplex LE RT DATE OF EXAM: 02/27/2017 11:42 AM COMPARISON: NONE CLINICAL HISTORY: Pain. SIDE PERFORMED: TECHNIQUE: The lower extremity deep venous system is examined utilizing real time linear array sonog eddie with graded compression, doppler sonography and color-flow sonography. VESSELS IMAGED: External Iliac Vein (EIV) Common Femoral Vein Deep Femoral Vein Greater Saphenous Vein * Femoral Vein Popliteal Vein Small Saphenous Vein * Proximal Calf Veins (* superficial vessels) Patient had difficulty adducting her leg, making pop fossa pictures technically difficult. Right Leg: Negative for DVT IMPRESSION: 1. Right lower extremity negative for deep venous thrombosis.
--- NOTE | 2017-02-27 12:44 | XR ---
EXAMINATION TYPE: XR Hip Complete RT DATE OF EXAM: 02/27/2017 12:22 PM CLINICAL HISTORY: pain TECHNIQUE: AP and frogleg views of the right hip are obtained. COMPARISON: 02/12/2017 FINDINGS: There is no acute fracture/dislocation evident. Right hip prosthesis appears intact. The o verlying soft tissue appears unremarkable. IMPRESSION: 1. There is no acute fracture or dislocation. ICD 10 NO FRACTURE, INITIAL EVALUATION
[2017-02-27] MEDS ORDERED: NALOXONE 0.4 MG/ML 1 ML VIAL IV PRN (13:35)
[2017-02-27] MEDS: HYDROmorphone 1 MG/ML 1 ML SYRINGE IV PRN ×2 (14:41→18:40)
[2017-02-27 15:12] VITALS: BMI 26.5
[2017-02-27] MEDS ORDERED: DIPHENOX-ATROP 2.5-0.025 MG 1 EACH TAB PO PRN (17:09)
[2017-02-27] MEDS ORDERED: Acetaminophen-Codeine 300-30mg TAB PO PRN (17:09)
[2017-02-27] MEDS: HYDROcodone/APAP 7.5-325MG 1 EACH TAB PO PRN (21:20)
[2017-02-27] MEDS: ATORVASTATIN 10 MG TAB PO SCH (21:23)
[2017-02-27] MEDS: SODIUM CHLORIDE 0.9% 1,000 ML IV SCH (21:23)
[2017-02-28] MEDS: HYDROcodone/APAP 7.5-325MG 1 EACH TAB PO PRN ×3 (03:39→21:24)
[2017-02-28] MEDS: HYDROmorphone 1 MG/ML 1 ML SYRINGE IV PRN ×2 (08:29→18:17)
[2017-02-28] MEDS ORDERED: NON-FORMULARY DRUG (Ubidecarenone [Co Q-10] 100 MG) PO SCH (09:00)
[2017-02-28] MEDS: CALCIUM CARBONATE 500 MG CHEWABLE PO SCH (10:47)
[2017-02-28] MEDS: SERTRALINE 50 MG TAB PO SCH (10:47)
--- NOTE | 2017-02-28 11:10 | P.HPOR ---
History of Present Illness H&P Date: 02/28/17 Chief Complaint: Right hip pain/swelling This is a 71-year-old female who is status post total right hip arthroplasty with direct anterior approach on for 717. The patient had been doing pretty well at home. She states that she had an episode of vomiting on 02/21/2017 and didn't feel well. She states that after that she noticed increased swelling to the right hip and increase right lower extremity pain. She states that she does have pain in the low back that radiates down the back of the leg. She is also complaining of some numbness and tingling to the lower leg. She's had no fever or chills. She is admitted to our service for further evaluation and pain management. Past Medical History Past Medical History: Hyperlipidemia, Osteoarthritis (OA) Additional Past Medical History / Comment(s): hx. chronic diarrhea-possible gluten or lactose problem History of Any Multi-Drug Resistant Organisms: None Reported Past Surgical History: Bladder Surgery, Breast Surgery, Cholecystectomy, Joint Replacement, Orthopedic Surgery Additional Past Surgical History / Comment(s): Bilateral bunionectomy, cyst off back; colonoscopy, bladder suspension, cataract surg., breast biopsies-cyst, right lower extremity vein stripping done by Dr. Caruso 2 months ago Past Anesthesia/Blood Transfusion Reactions: Motion Sickness, Postoperative Nausea & Vomiting (PONV) Past Psychological History: Anxiety, Depression Smoking Status: Former smoker Past Alcohol Use History: None Reported Additional Past Alcohol Use History / Comment(s): quit smoking 1999, smoked < ppd since age of 17. She denies any medical marijuana, marijuana or street drug use. She lives at home with her . She does not use any aids for ambulation. Past Drug Use History: None Reported - Past Family History Mother Family Medical History: No Reported History Additional Family Medical History / Comment(s): Mother at age 72 with history of myocardial infarction and CVA. Father Additional Family Medical History / Comment(s): Father at age 64 had multiple CVAs with history of diabetes. Brother(s) Additional Family Medical History / Comment(s): Patient has 1 brother with no major medical problems. Sister(s) Additional Family Medical History / Comment(s): Patient has 2 sisters. One sister has history of vertigo and diarrhea. One sister has hypertension. Son(s) Additional Family Medical History / Comment(s): Patient has 3 sons. One has high iron levels. One is alcoholic. Medications and Allergies Home Medications Medication Instructions Recorded Confirmed Type ALPRAZolam [Xanax] 0.25 mg PO BID PRN 02/26/16 02/27/17 History Acetaminophen-Codeine 300-30mg 1 tab PO TID PRN 02/26/16 02/27/17 History [Tylenol #3] Calcium Carbonate [Calcium] 1,200 mg PO DAILY 02/26/16 02/27/17 History Diphenoxylate HCl/Atropine 1 tab PO TID PRN 02/26/16 02/27/17 History [Lomotil] Ergocalciferol [Vitamin D2] 50,000 unit PO Q30D 02/26/16 02/27/17 History Simvastatin [Zocor] 20 mg PO HS 02/26/16 02/27/17 History Temazepam [Restoril] 15 mg PO HS PRN 02/26/16 02/27/17 History Ubidecarenone [Co Q-10] 100 mg PO DAILY 02/26/16 02/27/17 History Sertraline [Zoloft] 50 mg PO DAILY 02/04/17 02/27/17 History Aspirin EC [Ecotrin] 325 mg PO BID 02/27/17 02/27/17 History HYDROcodone/APAP 7.5-325MG [[place] 2 tab PO Q6HR PRN 02/27/17 02/27/17 History 7.5] Allergies Allergy/AdvReac Type Severity Reaction Status Date / Time Penicillins Allergy Swelling/Skin Verified 02/27/17 12:48 Blisters Physical Examination This is a pleasant 71-year-old female in no acute distress. She is alert and oriented 3. She moves around in the bed fairly easily. Exam of the low back reveals no obvious deformity. There is pain with palpation about the lower lumbar region. There is mild paraspinal musculature tenderness on the right. Exam of the lower extremities reveals some fluctuance about the anterolateral aspect of the right hip. There is no erythema or increased warmth. The area is soft with mild tenderness. There is pain on palpation about the posterior aspect of the thigh down to the knee. She has full foot and ankle motion without difficulty. She has 5/5 strength with dorsiflexion of the great toe against resistance bilaterally. Straight leg raise produces minimal pain. There is no hip irritability with logroll. Neurovascular status to the lower extremities intact. Results Right hip x-ray shows implants in good position and alignment. No evidence of loosening and no evidence of fracture. - Labs Result Diagrams: 02/27/17 10:35 02/27/17 10:35 Assessment and Plan (1) Leg hematoma Status: Acute (2) Status post right hip replacement Status: Acute (3) Low back pain potentially associated with radiculopathy Status: Acute Plan: The clinical and exercises are discussed with the patient and her . I have discussed the case with Dr. Kurt Douglas. Dr. Douglas would like a computed tomography scan of the right hip as well as lumbar spine x-rays. I have ordered an antibiotic for prophylaxis. The patient will be evaluated by Dr. Douglas after the radiographic studies are available. The patient may resume her diet for now.
--- NOTE | 2017-02-28 11:24 | XR ---
EXAMINATION TYPE: XR lumbar spine 2 or 3V DATE OF EXAM: 02/28/2017 11:15 AM COMPARISON: NONE HISTORY: Low back pain TECHNIQUE: 3 view lumbar spine FINDINGS: There 5 lumbar-type vertebral bodies. Pedicles are intact. Mild is loss of disc height may be present. Vertebral body alignment is normal. The body heights are preserved. Vascular calcificatio n is within the aorta. IMPRESSION: 1. Suggestion of mild degenerative disc change
--- NOTE | 2017-02-28 11:50 | CT ---
EXAMINATION TYPE: CT hip RT wo con DATE OF EXAM: 02/28/2017 11:25 AM COMPARISON: NONE HISTORY: Right hip pain and back pain CT DLP: 322.1 mGycm Automated exposure control for dose reduction was used. FINDINGS: No acute fractures are evident. Right hip prosthesis is present. Soft tissues are unremarkable. There is some limitation due to beam hardening artifact. Superficial to the thigh musculature is a low-density collection measuring 5.6 x 2.5 x 12.4 cm likely may be an anterior lateral hematoma. IMPRESSION: 1. ANTEROLATERAL SUBCUTANEOUS HEMATOMA. 2. OSSEOUS STRUCTURES APPEAR INTACT WITH RIGHT HIP PROSTHESIS IN POSITION.
[2017-02-28] MEDS: CLINDAMYCIN 600 MG in DEXTROSE 5% IN WATER 50 ML IVPB SCH ×4 (13:13→18:17)
--- NOTE | 2017-02-28 13:23 | P.CONS ---
History of Present Illness - Reason for Consult Consult date: 02/28/17 Medical Management Requesting physician: Kurt Douglas - Chief Complaint Right hip Hematoma post Right PRESTON. - History of Present Illness This is a 71-year-old female patient of Dr. 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 She recently had vein stripping on the right lower extremity with Dr. Caruso 2 months ago. Patient has been admitted to the hospital under the care of Dr. Kurt Douglas status post right total hip arthroplasty with anterior approach back on 02/12/2017, patient has done well after surgery and she was discharged home patient stated that she woke up on Wednesday morning and that she was not feeling well and all of a sudden she felt nauseated and felt a popping sensation in the right hip and developed to have a significant swelling at the incision that created a lot of pressure for her on, patient ended up coming to the emergency department and she was found to have a hematoma at the site of the right hip and subsequent she was admitted and orthopedic surgery and I was asked to see her for medical management. Patient is sitting up in bed in no apparent distress she denies any chest pain, shortness breath, she has no dizziness, she is at hypertensive, her hemoglobin is stable, she does have a hematoma on the right side without any evidence of any neural vascular compromise. Review of Systems Constitutional: Denies anorexia, Denies lethargy, Denies malaise, Denies weakness, Denies weight gain, Denies weight loss Eyes: denies blurred vision, denies bulging eye, denies decreased vision, denies diplopia Ears: deny: decreased hearing Ears, nose, mouth and throat: Denies dysphagia, Denies neck lump, Denies swelling in throat, Denies sore throat Cardiovascular: Denies chest pain, Denies dyspnea on exertion, Denies paroxysmal nocturnal dyspnea, Denies phlebitis, Denies rapid heart beat, Denies shortness of breath Respiratory: Denies congestion, Denies cough with sputum, Denies home oxygen, Denies sleep apnea, Denies snoring, Denies wheezing Gastrointestinal: Reports change in bowel habits, Reports diarrhea, Reports nausea, Denies abdominal pain, Denies bloating, Denies BRBPR, Denies early satiety, Denies heartburn, Denies loss of appetite, Denies melena, Denies vomiting Genitourinary: Denies dysuria, Denies hematuria Menstruation: Denies postmenopausal Musculoskeletal: Reports gait dysfunction Musculoskeletal: right: hip pain, hip stiffness, hip swelling, absent: ankle pain, ankle stiffness, ankle swelling, as per HPI, elbow pain, elbow stiffness, elbow swelling, foot pain, foot stiffness, foot swelling, hand pain, hand stiffness, hand swelling, knee pain, knee stiffness, knee swelling, shoulder pain, shoulder stiffness, shoulder swelling, wrist pain, wrist stiffness, wrist swelling Integumentary: Denies pruritus, Denies rash Neurological: Denies numbness, Denies weakness Psychiatric: Denies anxiety, Denies depression Endocrine: Denies fatigue, Denies weight change Past Medical History Past Medical History: Hyperlipidemia, Osteoarthritis (OA) Additional Past Medical History / Comment(s): hx. chronic diarrhea-possible gluten or lactose problem History of Any Multi-Drug Resistant Organisms: None Reported Past Surgical History: Bladder Surgery, Breast Surgery, Cholecystectomy, Joint Replacement, Orthopedic Surgery Additional Past Surgical History / Comment(s): Bilateral bunionectomy, cyst off back; colonoscopy, bladder suspension, cataract surg., breast biopsies-cyst, right lower extremity vein stripping done by Dr. Caruso 2 months ago Past Anesthesia/Blood Transfusion Reactions: Motion Sickness, Postoperative Nausea & Vomiting (PONV) Past Psychological History: Anxiety, Depression Smoking Status: Former smoker Past Alcohol Use History: None Reported Additional Past Alcohol Use History / Comment(s): quit smoking 1999, smoked < ppd since age of 17. She denies any medical marijuana, marijuana or street drug use. She lives at home with her . She does not use any aids for ambulation. Past Drug Use History: None Reported - Past Family History Mother Family Medical History: No Reported History Additional Family Medical History / Comment(s): Mother at age 72 with history of myocardial infarction and CVA. Father Additional Family Medical History / Comment(s): Father at age 64 had multiple CVAs with history of diabetes. Brother(s) Additional Family Medical History / Comment(s): Patient has 1 brother with no major medical problems. Sister(s) Additional Family Medical History / Comment(s): Patient has 2 sisters. One sister has history of vertigo and diarrhea. One sister has hypertension. Son(s) Additional Family Medical History / Comment(s): Patient has 3 sons. One has high iron levels. One is alcoholic. Medications and Allergies Home Medications Medication Instructions Recorded Confirmed Type ALPRAZolam [Xanax] 0.25 mg PO BID PRN 02/26/16 02/27/17 History Acetaminophen-Codeine 300-30mg 1 tab PO TID PRN 02/26/16 02/27/17 History [Tylenol #3] Calcium Carbonate [Calcium] 1,200 mg PO DAILY 02/26/16 02/27/17 History Diphenoxylate HCl/Atropine 1 tab PO TID PRN 02/26/16 02/27/17 History [Lomotil] Ergocalciferol [Vitamin D2] 50,000 unit PO Q30D 02/26/16 02/27/17 History Simvastatin [Zocor] 20 mg PO HS 02/26/16 02/27/17 History Temazepam [Restoril] 15 mg PO HS PRN 02/26/16 02/27/17 History Ubidecarenone [Co Q-10] 100 mg PO DAILY 02/26/16 02/27/17 History Sertraline [Zoloft] 50 mg PO DAILY 02/04/17 02/27/17 History Aspirin EC [Ecotrin] 325 mg PO BID 02/27/17 02/27/17 History HYDROcodone/APAP 7.5-325MG [[place] 2 tab PO Q6HR PRN 02/27/17 02/27/17 History 7.5] Allergies Allergy/AdvReac Type Severity Reaction Status Date / Time Penicillins Allergy Swelling/Skin Verified 02/27/17 12:48 Blisters Physical Exam Vitals: Vital Signs Temp Pulse Pulse Resp BP BP Pulse Ox 02/28/17 07:00 97.5 F L 89 18 110/58 98 02/27/17 22:37 97.3 F L 92 16 129/61 98 02/27/17 15:24 18 02/27/17 15:00 97.8 F 81 18 140/69 98 02/27/17 13:44 97.4 F L 77 18 136/63 98 Intake and Output 02/27/17 02/28/17 02/28/17 22:59 06:59 14:59 Intake Total 590 590 Balance 590 590 Intake: Oral 590 590 Other: Voiding Method Toilet # Voids 2 2 Weight 68.039 kg - Constitutional General appearance: no acute distress - EENT Eyes: anicteric sclerae, EOMI, PERRLA, no ptosis, no scleral icterus, normal appearance ENT: hearing grossly normal, NA/AT, normal oropharynx, no thrush Ears: bilateral: normal - Neck Neck: no lymphadenopathy, normal ROM, no rigidity, no stridor, no thyromegaly Carotids: bilateral: upstroke normal Thyroid: bilateral: normal size - Respiratory Respiratory: bilateral: diminished, negative: dullness, rales, rhonchi, wheezing , prolonged expiration, prolonged inspiration - Cardiovascular Rhythm: regular Heart sounds: normal: S1, S2 Abnormal Heart Sounds: no systolic murmur, no S3 Gallop, no S4 Gallop - Gastrointestinal General gastrointestinal: normal bowel sounds, soft, no splenomegaly, no tenderness, no umbilical hernia, no ventral hernia - Integumentary Integumentary: normal, normal turgor - Neurologic Neurologic: CNII-XII intact - Musculoskeletal Musculoskeletal: strength equal bilaterally - Psychiatric Psychiatric: A&O x's 3, appropriate affect, intact judgment & insight Results CBC & Chem 7: 02/27/17 10:35 02/27/17 10:35 Assessment and Plan Plan: Assessment and plan: 1. Right hip hematoma. Hold aspirin, continue ice packs, computed tomography scan of the right hip will be obtained as recommended by orthopedic surgery. No plan for immediate surgical intervention at this time. 2. Status post right total hip arthroplasty direct anterior approach. We will continue to monitor the patient very closely. 3. Hyperlipidemia. Continue Lipitor. 4. Chronic diarrhea with gluten and lactose intolerance. Continue special diet and Lomotil as needed. 5. DVT prophylaxis. Hold aspirin for now, continue knee-high LAKSHMI hose. 6. GI prophylaxis. Continue Protonix 40 mg orally once every day. 7. Thank you for the consult we will follow the patient along with you.
[2017-02-28] MEDS: SODIUM CHLORIDE 0.9% 1,000 ML IV SCH (18:16)
[2017-02-28] MEDS: ATORVASTATIN 10 MG TAB PO SCH (21:24)
[2017-03-01] MEDS: CLINDAMYCIN 600 MG in DEXTROSE 5% IN WATER 50 ML IVPB SCH ×4 (00:18→06:19)
[2017-03-01] MEDS: HYDROmorphone 1 MG/ML 1 ML SYRINGE IV PRN (00:40)
[2017-03-01] MEDS: ALPRAZolam 0.25 MG TAB PO PRN ×2 (02:23→20:25)
[2017-03-01] MEDS: CALCIUM CARBONATE 500 MG CHEWABLE PO SCH (07:39)
[2017-03-01] MEDS: HYDROcodone/APAP 7.5-325MG 1 EACH TAB PO PRN ×2 (07:49→20:25)
[2017-03-01] MEDS: SERTRALINE 50 MG TAB PO SCH (08:30)
--- NOTE | 2017-03-01 10:27 | P.PN ---
Subjective Principal diagnosis: Right hip hematoma, status post right total hip arthroplasty This is a 71-year-old female who is status post right total hip arthroplasty. The patient is 2 weeks postop. She's developed postoperative hematoma near her surgical incision. She seen and evaluated at bedside with Dr. Kurt Douglas. She complains of pain in her anterior thigh and posterior thigh. She has worsening pain with ambulation and weightbearing. Objective - Vital Signs Vital signs: Vital Signs Temp 97.7 F 03/01/17 07:00 Pulse 79 03/01/17 07:00 Resp 18 03/01/17 07:00 BP 103/54 03/01/17 07:00 Pulse Ox 97 03/01/17 07:00 Intake & Output 02/28/17 03/01/17 03/01/17 18:59 06:59 18:59 Intake Total 830 Balance 830 Weight 68.039 kg Intake: IV 240 Clindamycin 600 mg In 100 Dextrose 5% in Water 50 ml @ 100 mls/hr IVPB Q6HR JOLEEN Rx#:[id number] Sodium Chloride 0.9% 1, 140 000 ml @ 20 mls/hr IV . Q24H JOLEEN Rx#:[id number] Oral 590 Other: Voiding Method Toilet Toilet # Voids 14 3 1 # Bowel Movements 1 # Emeses 1 - Exam The patient does not appear in acute distress. She is alert and orientated 3. Incision appears fine with no erythema or active drainage. She does have soft tissue swelling around the incision and lateral to the incision consistent with hematoma. She is able to perform active hip motion without pain out of proportion. She is able to perform knee extension and flexion. Sensation and circulatory status is intact. - Labs CBC & Chem 7: 02/27/17 10:35 02/27/17 10:35 Assessment and Plan (1) Leg hematoma Status: Acute (2) Status post right hip replacement Status: Acute Plan: The clinical and CT findings were discussed with the patient at bedside. We discussed some of her symptoms may be related to her back as well. We will continue with conservative management with moist heat applied to the area of the hematoma. The patient was started on Solu-Medrol and Toradol for pain. Antibiotics may be discontinued at this time as there is no sign of infection. We'll follow patient closely over the next 24-48 hours. Further plan will be determined by her course. At this point no surgical intervention is planned. We discussed the increased risk of infection associated with possible I&D of the hematoma. The patient understands and agrees with the plan of care.
[2017-03-01] MEDS: KETOROLAC 30 MG/ML 1 ML VIAL IVP SCH ×3 (10:54→23:32)
--- NOTE | 2017-03-01 15:15 | P.PN ---
Subjective This is a 71-year-old female patient of Dr. 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 She recently had vein stripping on the right lower extremity with Dr. Caruso 2 months ago. Patient has been admitted to the hospital under the care of Dr. Kurt Douglas status post right total hip arthroplasty with anterior approach back on 02/12/2017, patient has done well after surgery and she was discharged home patient stated that she woke up on Wednesday morning and that she was not feeling well and all of a sudden she felt nauseated and felt a popping sensation in the right hip and developed to have a significant swelling at the incision that created a lot of pressure for her on, patient ended up coming to the emergency department and she was found to have a hematoma at the site of the right hip and subsequent she was admitted and orthopedic surgery and I was asked to see her for medical management. Patient is sitting up in bed in no apparent distress she denies any chest pain, shortness breath, she has no dizziness, she is at hypertensive, her hemoglobin is stable, she does have a hematoma on the right side without any evidence of any neural vascular compromise. 03/01: Patient had episode of vomiting this morning and the clindamycin was discontinued thought to be the culprit. She is also complaining that [place] does not seem to be helping her and there was plan for changes which it appears to be she is on [place] 7.52 tablets every 6 hours. Orthopedics has ordered heat to the area. Objective - Vital Signs Vital signs: Vital Signs Temp 97.7 F 03/01/17 07:00 Pulse 79 03/01/17 07:00 Resp 18 03/01/17 07:00 BP 103/54 03/01/17 07:00 Pulse Ox 97 03/01/17 07:00 Intake & Output 02/28/17 03/01/17 03/01/17 18:59 06:59 18:59 Intake Total 830 Balance 830 Weight 68.039 kg Intake: IV 240 Clindamycin 600 mg In 100 Dextrose 5% in Water 50 ml @ 100 mls/hr IVPB Q6HR JOLEEN Rx#:[id number] Sodium Chloride 0.9% 1, 140 000 ml @ 20 mls/hr IV . Q24H JOLEEN Rx#:[id number] Oral 590 Other: Voiding Method Toilet Toilet # Voids 14 3 1 # Bowel Movements 1 # Em[place] 1 - Exam General appearance: no acute distress - EENT Eyes: anicteric sclerae, EOMI, PERRLA, no ptosis, no scleral icterus, normal appearance ENT: hearing grossly normal, NA/AT, normal oropharynx, no thrush Ears: bilateral: normal - Neck Neck: no lymphadenopathy, normal ROM, no rigidity, no stridor, no thyromegaly Carotids: bilateral: upstroke normal Thyroid: bilateral: normal size - Respiratory Respiratory: bilateral: diminished, negative: dullness, rales, rhonchi, wheezing , prolonged expiration, prolonged inspiration - Cardiovascular Rhythm: regular Heart sounds: normal: S1, S2 Abnormal Heart Sounds: no systolic murmur, no S3 Gallop, no S4 Gallop - Gastrointestinal General gastrointestinal: normal bowel sounds, soft, no splenomegaly, no tenderness, no umbilical hernia, no ventral hernia - Integumentary Integumentary: normal, normal turgor - Neurologic Neurologic: CNII-XII intact - Musculoskeletal Musculoskeletal: strength equal bilaterally - Psychiatric Psychiatric: A&O x's 3, appropriate affect, intact judgment & insight - Labs CBC & Chem 7: 02/27/17 10:35 02/27/17 10:35 Assessment and Plan Plan: 1. Right hip hematoma. Hold aspirin, continue ice packs, computed tomography scan of the right hip will be obtained as recommended by orthopedic surgery. No plan for immediate surgical intervention at this time. 2. Status post right total hip arthroplasty direct anterior approach. We will continue to monitor the patient very closely. 3. Hyperlipidemia. Continue Lipitor. 4. Chronic diarrhea with gluten and lactose intolerance. Continue special diet and Lomotil as needed. 5. DVT prophylaxis. Hold aspirin for now, continue knee-high LAKSHMI hose. 6. GI prophylaxis. Continue Protonix 40 mg orally once every day. 7. Thank you for the consult we will follow the patient along with you. Discharge plan: Return home Impression and plan of care have been directed as dictated by the signing physician. Cary Palomo nurse practitioner acting as scribe for signing physician. Time with Patient: Greater than 30
[2017-03-01] MEDS: SODIUM CHLORIDE 0.9% 1,000 ML IV SCH (15:38)
[2017-03-01] MEDS: methylPREDNISolone SOD SUCCI 125 MG/2 ML VIAL IV SCH (19:34)
[2017-03-01] MEDS: ATORVASTATIN 10 MG TAB PO SCH (19:34)
[2017-03-01 20:46] VITALS: RESP 16; TEMP 97.8
[2017-03-02] MEDS: KETOROLAC 30 MG/ML 1 ML VIAL IVP SCH (05:25)
[2017-03-02 05:35] VITALS: BP 130/74; PULSE 81
[2017-03-02] MEDS: methylPREDNISolone SOD SUCCI 125 MG/2 ML VIAL IV SCH (08:09)
[2017-03-02] MEDS: ALPRAZolam 0.25 MG TAB PO PRN (08:20)
[2017-03-02] MEDS: CALCIUM CARBONATE 500 MG CHEWABLE PO SCH (08:20)
[2017-03-02] MEDS: SERTRALINE 50 MG TAB PO SCH (08:20)
--- NOTE | 2017-03-02 09:33 | P.PN ---
Subjective Principal diagnosis: Right hip hematoma, status post right total hip arthroplasty This is a 71-year-old female who is status post right total hip arthroplasty. The patient is 2 weeks postop. She's developed postoperative hematoma near her surgical incision. She complains of pain in her anterior thigh and posterior thigh. She is feeling somewhat better today. She could not tolerate the Solu- Medrol. She was up ambulating the hallway with a walker at the time my evaluation. Objective - Vital Signs Vital signs: Vital Signs Temp 97.8 F 03/02/17 05:34 Pulse 81 03/02/17 05:34 Resp 16 03/02/17 08:00 BP 130/74 03/02/17 05:34 Pulse Ox 99 03/02/17 05:34 Intake & Output 03/01/17 03/02/17 03/02/17 18:59 06:59 18:59 Other: Voiding Method Toilet Toilet # Voids 1 2 # Emeses 1 - Exam The patient does not appear in acute distress. She is alert and orientated 3. Incision appears fine with no erythema or active drainage. She does have soft tissue swelling around the incision and lateral to the incision consistent with hematoma. She is able to perform active hip motion without pain out of proportion. She is able to perform knee extension and flexion. Sensation and circulatory status is intact. - Labs CBC & Chem 7: 02/27/17 10:35 02/27/17 10:35 Assessment and Plan (1) Leg hematoma Status: Acute (2) Status post right hip replacement Status: Acute Plan: The clinical findings were discussed with the patient at bedside. We discussed some of her symptoms may be related to her back as well. We will continue with conservative management with moist heat applied to the area of the hematoma. The patient was started on Toradol for pain. Antibiotics may be discontinued at this time as there is no sign of infection. At this point no surgical intervention is planned. We discussed the increased risk of infection associated with possible I&D of the hematoma. The patient understands and agrees with the plan of care. The patient may be discharged to home when she is cleared by consulting physicians. She'll return for follow-up in 1 week for reevaluation. Parameters to return to the hospital were discussed with the patient as well.
--- NOTE | 2017-03-02 13:36 | P.PN ---
Subjective This is a 71-year-old female patient of Dr. 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 She recently had vein stripping on the right lower extremity with Dr. Caruso 2 months ago. Patient has been admitted to the hospital under the care of Dr. Kurt Douglas status post right total hip arthroplasty with anterior approach back on 02/12/2017, patient has done well after surgery and she was discharged home patient stated that she woke up on Wednesday morning and that she was not feeling well and all of a sudden she felt nauseated and felt a popping sensation in the right hip and developed to have a significant swelling at the incision that created a lot of pressure for her on, patient ended up coming to the emergency department and she was found to have a hematoma at the site of the right hip and subsequent she was admitted and orthopedic surgery and I was asked to see her for medical management. Patient is sitting up in bed in no apparent distress she denies any chest pain, shortness breath, she has no dizziness, she is at hypertensive, her hemoglobin is stable, she does have a hematoma on the right side without any evidence of any neural vascular compromise. 03/01: Patient had episode of vomiting this morning and the clindamycin was discontinued thought to be the culprit. She is also complaining that [place] does not seem to be helping her and there was plan for changes which it appears to be she is on [place] 7.52 tablets every 6 hours. Orthopedics has ordered heat to the area. 03/02: She has found today ambulating in her room. She is scheduled for discharge home today. No new medications. Patient is being discharged home in stable condition. Objective - Vital Signs Vital signs: Vital Signs Temp 97.8 F 03/02/17 05:34 Pulse 81 03/02/17 05:34 Resp 16 03/02/17 08:00 BP 130/74 03/02/17 05:34 Pulse Ox 99 03/02/17 05:34 Intake & Output 03/01/17 03/02/17 03/02/17 18:59 06:59 18:59 Other: Voiding Method Toilet Toilet # Voids 1 2 # [place] 1 - Exam General appearance: no acute distress - EENT Eyes: anicteric sclerae, EOMI, PERRLA, no ptosis, no scleral icterus, normal appearance ENT: hearing grossly normal, NA/AT, normal oropharynx, no thrush Ears: bilateral: normal - Neck Neck: no lymphadenopathy, normal ROM, no rigidity, no stridor, no thyromegaly Carotids: bilateral: upstroke normal Thyroid: bilateral: normal size - Respiratory Respiratory: bilateral: diminished, negative: dullness, rales, rhonchi, wheezing , prolonged expiration, prolonged inspiration - Cardiovascular Rhythm: regular Heart sounds: normal: S1, S2 Abnormal Heart Sounds: no systolic murmur, no S3 Gallop, no S4 Gallop - Gastrointestinal General gastrointestinal: normal bowel sounds, soft, no splenomegaly, no tenderness, no umbilical hernia, no ventral hernia - Integumentary Integumentary: normal, normal turgor - Neurologic Neurologic: CNII-XII intact - Musculoskeletal Musculoskeletal: strength equal bilaterally - Psychiatric Psychiatric: A&O x's 3, appropriate affect, intact judgment & insight - Labs CBC & Chem 7: 02/27/17 10:35 02/27/17 10:35 Assessment and Plan Plan: 1. Right hip hematoma. Hold aspirin, continue ice packs, computed tomography scan of the right hip will be obtained as recommended by orthopedic surgery. No plan for immediate surgical intervention at this time. 2. Status post right total hip arthroplasty direct anterior approach. We will continue to monitor the patient very closely. 3. Hyperlipidemia. Continue Lipitor. 4. Chronic diarrhea with gluten and lactose intolerance. Continue special diet and Lomotil as needed. 5. DVT prophylaxis. Hold aspirin for now, continue knee-high LAKSHMI hose. 6. GI prophylaxis. Continue Protonix 40 mg orally once every day. 7. Thank you for the consult we will follow the patient along with you. Discharge plan: Return home Impression and plan of care have been directed as dictated by the signing physician. Cary Palomo nurse practitioner acting as scribe for signing physician. Time with Patient: Greater than 30
== END 2017-03-02 10:57 | disposition home health service (06) ==
LOC: EC 09:32 → 5MS5E 13:35 → 3OBS 03-01 19:17
PROVIDERS: ADMIT Orthopaedic Surgery; ATTEND Orthopaedic Surgery
DX: M96.840 Postprocedural hematoma of a musculoskeletal structure following a musculoskeletal system procedure (principal); Z96.641 Presence of right artificial hip joint; E78.5 Hyperlipidemia, unspecified; R19.7 Diarrhea, unspecified; K90.41 Non-celiac gluten sensitivity; E73.9 Lactose intolerance, unspecified; F32.9 Major depressive disorder, single episode, unspecified; F41.9 Anxiety disorder, unspecified; R11.10 Vomiting, unspecified; M54.5 Low back pain; Z88.0 Allergy status to penicillin; Z79.899 Other long term (current) drug therapy; Z79.82 Long term (current) use of aspirin; Z82.49 Family history of ischemic heart disease and other diseases of the circulatory system; Z83.3 Family history of diabetes mellitus; Z82.3 Family history of stroke; Z87.891 Personal history of nicotine dependence; M19.90 Unspecified osteoarthritis, unspecified site; R42 Dizziness and giddiness
CPT/HCPCS: 96375 ×5; 96376 ×5; 96374; 99285; 36415; 93005; 80053; 82550; 82553; 84484; 85025; 85610; 85730; 87040; 72100; 73502; 93971; 76882; 73700; G0378 ×5; J2270 ×2; J2930; J1885 ×2; J1170 ×3

== ENCOUNTER → 2017-04-07 | Outpatient (CLI) | payer MEDICARE, OTHER ==
--- NOTE | 2017-04-08 13:29 | MM ---
Reason for exam: screening (asymptomatic). Last mammogram was performed 1 year and 2 months ago. History: Patient is postmenopausal. Family history of breast cancer in maternal aunt. Cyst aspiration of the left breast. Cyst aspiration of the right breast. Excisional biopsy of the left breast. Excisional biopsy of the right breast. Physical Findings: A clinical breast exam by your physician is recommended on an annual basis and results should be correlated with mammographic findings. MG 3D Screening Mammo W/Cad Bilateral CC and MLO view(s) were taken. Prior study comparison: February 20, 2016, bilateral MG 3d diag mammo w/cad ANYA. February 18, 2015, bilateral MG screening mammo w CAD. The breast tissue is heterogeneously dense. This may lower the sensitivity of mammography. There is no discrete abnormality. No significant changes when compared with prior studies. ASSESSMENT: Negative, BI-RAD 1 RECOMMENDATION: Routine screening mammogram of both breasts in 1 year.
== END | disposition home or self-care (01) ==
LOC: RADMAMWWP 16:26
PROVIDERS: ATTEND Internal Medicine Geriatric Medicine
DX: Z12.31 Encounter for screening mammogram for malignant neoplasm of breast (principal)
CPT/HCPCS: 77063; G0202

== ENCOUNTER → 2017-07-19 | Outpatient (CLI) | payer MEDICARE, OTHER ==
[2017-07-19 14:02] LABS: Basophils # (A) 0.1 k/uL (0-0.2); Basophils % (A) 1 %; CH 29.3; CHCM 32.6; Eosinophils # (A) 0.1 k/uL (0-0.7); Eosinophils % (A) 2 %; HCT 41.6 % (34.0-46.0); HDW 2.29; HGB 13.6 gm/dL (11.4-16.0); Luc # (Auto) 0.09; Luc % (Auto) 1; Lymphocytes # (A) 2.4 k/uL (1.0-4.8); Lymphocytes % (A) 38 %; MCH 29.5 pg (25.0-35.0); MCHC 32.7 g/dL (31.0-37.0); MCV 90.2 fL (80.0-100.0); Mean Platelet Volume 6.7; Monocytes # (A) 0.3 k/uL (0-1.0); Monocytes % (A) 4 %; Neutrophils # (A) 3.5 k/uL (1.3-7.7); Neutrophils % (A) 54 %; RBC 4.62 m/uL (3.80-5.40); RDW 13.5 % (11.5-15.5); WBC 6.5 k/uL (3.8-10.6); WBC (Perox) 6.54
[2017-07-19 14:25] LABS: Anion Gap 10 mmol/L; Blood Urea Nitrogen 10 mg/dL (7-17); Carbon Dioxide 26 mmol/L (22-30); Chloride 103 mmol/L (98-107); Non-African American GFR(MDRD) >60 (>60 ml/min/1.73 sqM); Potassium 4.8 mmol/L (3.5-5.1); Sodium 139 mmol/L (137-145)
== END | disposition home or self-care (01) ==
LOC: LABPAT 12:39
PROVIDERS: ATTEND Obstetrics & Gynecology
DX: Z01.812 Encounter for preprocedural laboratory examination (principal); N81.10 Cystocele, unspecified
CPT/HCPCS: 80051; 82565; 84520; 85025; 87086

== ENCOUNTER 2017-07-27 05:52 | Day surgery (SDC) | payer MEDICARE, OTHER ==
[2017-07-21 14:25] VITALS: BMI 25.6
--- NOTE | 2017-07-26 17:16 | HP ---
HISTORY AND PHYSICAL HISTORY OF PRESENT ILLNESS: The patient is a 71-year-old, 3, para 3-0-0-3 who presented to the office approximately a month ago with complaints of increasing pressure. She had undergone hip surgery in February and shortly after that, felt she had some popping after which time she began having increasing urinary symptoms with both frequency and difficulty emptying as well as being up several times at night time. She felt that there was a bulge at the opening of the vagina but that did not protrude from the vagina. She has undergone vaginal hysterectomy with anterior repair in 2011. PAST MEDICAL HISTORY: Is significant only for irritable bowel syndrome. PAST SURGICAL HISTORY: Is significant for bunion surgery, cataract surgery, cholecystectomy, shoulder surgery, tubal ligation, and vaginal hysterectomy with anterior colporrhaphy. She has had no anesthetic concerns obstetrical history 3, para 3-0-0-3 with three term vaginal deliveries. GYNECOLOGIC HISTORY: Is unremarkable with hysterectomy as noted above. FAMILY HISTORY: Is noncontributory. SOCIAL HISTORY: The patient is and retired. She is a half a pack per day smoker. She denies any significant other social concerns. CURRENT MEDICATIONS: 1. Include an aspirin daily. 2. Calcium daily. 3. Co-Q10 daily. 4. Meclizine p.r.n. 5. Probiotic daily. 6. Sertraline daily. 7. Simvastatin daily. 8. Vitamin D3 daily. ALLERGIES: PENICILLIN CAUSED SOME SORT OF HEMATOLOGIC REACTION. REVIEW OF SYSTEMS: Is confined to history of present illness. PHYSICAL EXAMINATION: Vital signs are stable. The patient is afebrile. In general, this is a well- developed, well-nourished, white female, in no acute distress. Her HEENT demonstrates PERRLA, EOMI, oropharynx is clear. NECK: Supple to palpation. There is no adenopathy. Her heart has a regular rhythm and rate without murmur. Her lungs are clear to auscultation bilaterally in all peña. Her back is without spinal or CVA tenderness. Her abdomen is nondistended, has normoactive bowel sounds, is soft, nontender, without any palpable masses, hepatosplenomegaly, or hernias. Her extremities without any cyanosis, clubbing, or edema and are nontender to palpation bilaterally. Pelvic examination demonstrates normal external genitalia and the BUS is normal vaginal mucosa. There is a grade 3 cystocele present with Valsalva maneuver though the apex and rectum feels to be well supported. The uterus is surgically absent. The adnexa are nonpalpable without any apparent masses. ASSESSMENT/PLAN: Symptomatic cystocele, recurrent: We discussed multiple options for treatment including observation versus trying a pessary or proceeding with repeat surgical repair. She has chosen to repeat surgical repair and we are scheduled for anterior colporrhaphy. The risks and complications of the procedure were discussed at length including the risk for bleeding, bleeding requiring transfusion, infection, injury to local structures, to specifically include the bladder which would be slightly increased secondary to the previous surgery. We also discussed the risk of recurrent prolapse. She understood all this and has agreed to proceed. We are scheduled for the procedure on the morning of July 27, 2017. MMODL / IJN: [id number] /
[~2017-07-27 05:52] MED LIST changes: -ACETAMINOPHEN TAB 500 MG TAB PO ONE; +LACTATED RINGERS 1,000 ML IV SCH; -MELOXICAM 7.5 MG TAB PO ONE; -ONDANSETRON 4 MG/2 ML VIAL IVP ONE; -TRANEXAMIC ACID 1,000 MG in SODIUM CHLORIDE 0.9% 100 ML IVPB ONE
[2017-07-27] MEDS: ONDANSETRON 4 MG/2 ML VIAL IVP ONE ×2 (06:39→08:56)
[2017-07-27] MEDS ORDERED: fentaNYL (PF) 50 MCG/ML 2 ML AMP ONE (07:42)
[2017-07-27] MEDS ORDERED: KETOROLAC 30 MG/ML 1 ML VIAL ONE (07:42)
[2017-07-27] MEDS ORDERED: ePHEDrine SULFATE/0.9% NACL/PF 50 MG/5 ML SYRINGE IV ONE (07:42)
[2017-07-27] MEDS ORDERED: LIDOCAINE 1% INJ 10MG/ML (20 ML MDV) ONE (07:42)
[2017-07-27] MEDS ORDERED: MIDAZOLAM 2 MG/2 ML VIAL ONE (07:42)
[2017-07-27] MEDS ORDERED: PROPOFOL 10 MG/ML 20 ML VIAL IV ONE (07:42)
[2017-07-27] MEDS ORDERED: SIMETHICONE 80 MG CHEWABLE PO PRN (07:44)
[2017-07-27] MEDS ORDERED: diphenhydrAMINE 50 MG/ML 1 ML VIAL IVP PRN (07:44)
[2017-07-27] MEDS ORDERED: Acetaminophen-Codeine 300-30mg TAB PO PRN (07:44)
[2017-07-27] MEDS ORDERED: METOCLOPRAMIDE 5 MG/ML 2 ML VIAL IVP PRN (07:44)
[2017-07-27] MEDS ORDERED: ONDANSETRON 4 MG/2 ML VIAL IVP PRN (07:44)
[2017-07-27] MEDS ORDERED: ALPRAZolam 0.25 MG TAB PO STA (07:45)
[2017-07-27] MEDS ORDERED: SCOPOLAMINE 1.5MG/72HR PATCH TRANSDERM STA (07:46)
[2017-07-27] MEDS ORDERED: VASOPRESSIN 20 UNIT/ML 1 ML VIAL SQ ONE (08:02)
[2017-07-27] MEDS ORDERED: BACITRACIN 500 UNIT/GM OINT 28.4 GM TUBE TOPICAL ONE (08:21)
--- NOTE | 2017-07-27 08:28 | P.OP ---
Date of Procedure: 07/27/17 Preoperative Diagnosis: 1. Recurrent cystocele, symptomatic Postoperative Diagnosis: Same Procedure(s) Performed: #1. Anterior colporrhaphy Anesthesia: other (Gen. by LMA) Surgeon: Tito Hatfield Grain Shoveler #1: Hawa Mari Estimated Blood Loss (ml): 5 IV fluids (ml): 800 Urine output (ml): 30 Pathology: none sent Condition: stable Disposition: PACU Operative Findings: Under anesthesia the patient was noted to have a roughly grade 3 cystocele present. The apex did have a small amount of prolapse present as well but the uterosacral dimples were apparent. There was a small distal rectocele present which was left in place as it was not symptomatic at the time presentation at only noted under anesthesia. Additionally, repair of the rectocele would have significantly foreshortened the vagina. Description of Procedure: The patient was prepped and draped in usual fashion after general anesthesia was administered by the anesthesiologist. A weighted speculum was placed and the bladder catheterized approximately 30 mL of clear radha urine. The uterosacral dimples were grasped on each side using an Allis clamp and the vesicovaginal mucosa infused with diluted vasopressin solution. A transverse incision was made from uterosacral double-tooth uterosacral temporal at the apex of the vagina and the Allises replaced along the incisional line. The vesicovaginal mucosa was then undermined in the midline with Metzenbaum scissors from the apex of the vagina towards the urethral apex. It was divided along this pathway. The overlying mucosa was then dissected from the underlying tissues. Once adequate reflection had been carried out, the bladder was catheterized for minimal amount of clear radha urine. Serial Cynthia plication stitches were placed from the urethral apex towards the vaginal apex using 2-0 PDS. Once the stitches had been completed, the intervening redundant vaginal mucosa was trimmed with the Metzenbaum scissors and discarded. Mucosa was closed with a running locking stitch of 2-0 Vicryl from the urethral apex to the vaginal apex. Assessment of the small rectocele present was carried out and the eye felt that the vagina would be significantly shortened and the introitus made significantly smaller for a defect that the patient had not complained of. As results it was left in place. The vagina was packed with one -inch iodophor gauze covered with bacitracin ointment. Estimated blood loss for the case was 5 mL or less. There were no complications. All sponge, instrument, and needle counts were correct. The patient tolerated the procedure well and proceeded to the recovery room in stable condition.
[2017-07-27] MEDS: LACTATED RINGERS 1,000 ML IV SCH ×4 (08:37→23:20)
[2017-07-27] MEDS: SENNOSIDES-DOCUSATE SODIUM 1 EACH TAB PO SCH ×2 (11:44→20:14)
[2017-07-27] MEDS: IBUPROFEN 600 MG TAB PO PRN (13:51)
[2017-07-27] MEDS: Acetaminophen-Codeine 300-30mg TAB PO PRN (15:09)
[2017-07-27] MEDS ORDERED: ALPRAZolam 0.25 MG TAB PO PRN (16:08)
[2017-07-28] MEDS: Acetaminophen-Codeine 300-30mg TAB PO PRN ×2 (02:20→08:37)
[2017-07-28 03:06] VITALS: PULSE 73
[2017-07-28] MEDS: IBUPROFEN 600 MG TAB PO PRN (06:18)
[2017-07-28 06:51] LABS: Basophils % (A) 1 %; CH 28.9; CHCM 31.9; Eosinophils # (A) 0.2 k/uL (0-0.7); Eosinophils % (A) 3 %; HCT 35.6 % (34.0-46.0); HDW 2.23; HGB 11.9 gm/dL (11.4-16.0); Luc # (Auto) 0.09; Luc % (Auto) 2; Lymphocytes # (A) 1.4 k/uL (1.0-4.8); Lymphocytes % (A) 23 %; MCH 30.4 pg (25.0-35.0); MCHC 33.4 g/dL (31.0-37.0); Mean Platelet Volume 6.8; Monocytes # (A) 0.3 k/uL (0-1.0); Monocytes % (A) 5 %; Neutrophils # (A) 4.2 k/uL (1.3-7.7); Neutrophils % (A) 67 %; RBC 3.91 m/uL (3.80-5.40); RDW 13.6 % (11.5-15.5); WBC 6.2 k/uL (3.8-10.6); WBC (Perox) 6.33
[2017-07-28 08:27] VITALS: BP 119/75; RESP 20; TEMP 97.4
[2017-07-28] MEDS: SENNOSIDES-DOCUSATE SODIUM 1 EACH TAB PO SCH (08:27)
--- NOTE | 2017-07-28 08:48 | P.DS ---
Providers Expected date of discharge: 07/28/17 Attending physician: Tito Hatfield Primary care physician: Dominic Mcdonald - Discharge Diagnosis(es) (1) Cystocele Current Visit: Yes Status: Acute Hospital Course: The patient is a 71-year-old woman who has previously undergone vaginal hysterectomy and anterior repair who recently has had an increasingly uncomfortable bulge which she feels happened acutely after her recent hip surgery. She feels that her cystocele has been recurrent and examination before out a grade 2-3 cystocele. She requested surgical intervention was taken the operating room where she underwent anterior colporrhaphy and uncomplicated fashion. Her postoperative course was unremarkable vital signs being stable and her temperature was afebrile throughout. She was able to void without difficulty after removal of the catheter on postoperative day #1 and post-residual was minimal. As result she was deemed stable for discharge and was discharged home to follow-up in the office in 2 weeks for recheck in 6 weeks routinely. Discharge instructions included calling for any significantly increased bleeding, fever, pain, bladder concerns, or anything else that concerned her. She was additionally instructed to do no heavy lifting of anything heavier than 8-10 pounds over the next 6 weeks time and to abstain from anything in the vagina over the same period of time. She understood her instructions and agrees follow up as noted above. Discharge medications included only those medications that she takes routinely at home as her pain is being well controlled with [id number] analgesics. Procedures: #1. Anterior colporrhaphy Patient Condition at Discharge: Good Plan - Discharge Summary New Discharge Prescriptions: No Action Temazepam [Restoril] 15 mg PO HS PRN PRN Reason: Insomnia Simvastatin [Zocor] 20 mg PO HS ALPRAZolam [Xanax] 0.25 mg PO BID PRN PRN Reason: Anxiety Ergocalciferol [Vitamin D2] 50,000 unit PO Q30D Acetaminophen-Codeine 300-30mg [Tylenol #3] 1 tab PO TID PRN PRN Reason: Pain Ubidecarenone [Co Q-10] 100 mg PO DAILY Sertraline [Zoloft] 50 mg PO 1200 Loperamide [Imodium] 2 mg PO DAILY Lactase [Lactaid] 3,000 unit PO AC-TID PRN PRN Reason: Allergic Reaction Aspirin [Adult Low Dose Aspirin EC] 81 mg PO DAILY Estrace Cream 1 applicator VAGINAL HS Discharge Medication List ALPRAZolam [Xanax] 0.25 mg PO BID PRN 02/26/16 [History] Acetaminophen-Codeine 300-30mg [Tylenol #3] 1 tab PO TID PRN 02/26/16 [History] Ergocalciferol [Vitamin D2] 50,000 unit PO Q30D 02/26/16 [History] Simvastatin [Zocor] 20 mg PO HS 02/26/16 [History] Temazepam [Restoril] 15 mg PO HS PRN 02/26/16 [History] Ubidecarenone [Co Q-10] 100 mg PO DAILY 02/26/16 [History] Sertraline [Zoloft] 50 mg PO 1200 02/04/17 [History] Aspirin [Adult Low Dose Aspirin EC] 81 mg PO DAILY 07/21/17 [History] Estrace Cream 1 applicator VAGINAL HS 07/21/17 [History] Lactase [Lactaid] 3,000 unit PO AC-TID PRN 07/21/17 [History] Loperamide [Imodium] 2 mg PO DAILY 07/21/17 [History] Follow up Appointment(s)/Referral(s): Tito Hatfield MD [STAFF PHYSICIAN] - 2 Weeks Discharge Disposition: HOME SELF-CARE
[2017-07-28] MEDS: LACTATED RINGERS 1,000 ML IV SCH (09:46)
== END 2017-07-28 09:47 | disposition home or self-care (01) ==
LOC: OR 05:52 → 6PED 08:25 → OR 07-28 09:47
PROVIDERS: ATTEND Obstetrics & Gynecology
DX: N81.10 Cystocele, unspecified (principal); F17.210 Nicotine dependence, cigarettes, uncomplicated; F41.9 Anxiety disorder, unspecified; G47.00 Insomnia, unspecified; K58.9 Irritable bowel syndrome, unspecified; Z79.82 Long term (current) use of aspirin; Z79.899 Other long term (current) drug therapy; Z88.0 Allergy status to penicillin
CPT/HCPCS: 57240; 85025; J2250; J2405; J2001; J3010; J1885; J2704; 86850; 86900; 86901

== ENCOUNTER → 2018-04-28 | Outpatient (CLI) | payer MEDICARE, OTHER ==
--- NOTE | 2018-04-28 15:58 | BD ---
EXAMINATION TYPE: Axial Bone Density DATE OF EXAM: 04/28/2018 COMPARISON: NONE CLINICAL HISTORY: Postmenopausal female. Osteoporosis screening. Height: 5 FT 2 3/4 IN Weight: 156 FRAX RISK QUESTIONS: History of Fracture in Adulthood: YES Secondary Osteoporosis: RISK FACTORS HISTORY OF: Surgery to Spine/Hip(right/left)/Wrist (right/left): RT HIP RELACEMENT When: 2017 Active: YES Postmenopausal woman: AGE 50 MEDICATIONS: Additional Medications: XANAX,VIT D, VIT B12, CO Q 10, SIMVASTATIN, DIPHENOXYL, SERTRALINE, Additional History: EXAM MEASUREMENTS: Bone mineral densitometry was performed using the [employer] System. Bone mineral density as measured about the Lumbar spine is: ----- L1-L4(G/cm2): 0.865 T Score Values are as follows: ----- L2: -1.9 ----- L3: -2.7 ----- L4: -3.1 ----- L1-L4: -2.6 Bone mineral density has: DECREASED -5.6 % since study of: 2011 Bone mineral density about the L hip (g/cm2): 0.657 T Score values are as follows: -----L Neck: -2.7 -----L Total: -2.2 Bone mineral density has: DECREASED -2.0 % since study of: 2011 IMPRESSION: Osteoporosis (T Score less than -2.5). There is increased fracture risk and therapy is usually indicated based on age. Re-Screen 1-2 years. NOTE: T-SCORE=SD OF THE YOUNG ADULT MEAN.
--- NOTE | 2018-05-02 08:29 | MM ---
Reason for exam: screening (asymptomatic). Last mammogram was performed 1 year and 1 month ago. History: Patient is postmenopausal. Family history of breast cancer in maternal aunt. Cyst aspiration of the left breast. Cyst aspiration of the right breast. Excisional biopsy of the left breast. Excisional biopsy of the right breast. Physical Findings: A clinical breast exam by your physician is recommended on an annual basis and results should be correlated with mammographic findings. MG 3D Screening Mammo W/Cad Bilateral CC and MLO view(s) were taken. Prior study comparison: April 07, 2017, bilateral MG 3d screening mammo w/cad. February 20, 2016, bilateral MG 3d diag mammo w/cad ANYA. There are scattered fibroglandular densities. There is no discrete abnormality. ASSESSMENT: Incomplete: need additional imaging evaluation, BI-RAD 0 RECOMMENDATION: Ultrasound of the left breast. (focal pain) [facility] will attempt to contact patient to return for ultrasound.
== END | disposition home or self-care (01) ==
LOC: RADMAMWWP 10:47
PROVIDERS: ATTEND Internal Medicine Geriatric Medicine
DX: Z12.31 Encounter for screening mammogram for malignant neoplasm of breast (principal); M81.0 Age-related osteoporosis without current pathological fracture
CPT/HCPCS: 77063; 77067; 77080

== ENCOUNTER → 2018-05-25 | Outpatient (CLI) | payer MEDICARE, OTHER ==
--- NOTE | 2018-05-25 14:50 | USB ---
Reason for exam: additional evaluation requested from abnormal screening. History: Patient is postmenopausal. Family history of breast cancer in maternal aunt. Cyst aspiration of the left breast. Cyst aspiration of the right breast. Excisional biopsy of the left breast. Excisional biopsy of the right breast. Physical Findings: Nurse Summary: Patient complains of left lower outer breast pain (nurse mj). US Breast Workup Limited LT Left limited breast ultrasound including focal area of concern, retroareolar and axilla demonstrates no cystic or solid lesion seen. These results were verbally communicated with the patient and result sheet given to the patient on 05/25/18. ASSESSMENT: Negative, BI-RAD 1 RECOMMENDATION: Return to routine screening mammogram schedule for both breasts. Manage patient on a clinical basis.
== END | disposition home or self-care (01) ==
LOC: RADUSWWP 13:42
PROVIDERS: ATTEND Internal Medicine Geriatric Medicine
DX: R92.8 Other abnormal and inconclusive findings on diagnostic imaging of breast (principal)

== ENCOUNTER 2018-12-16 10:01 | Emergency (ER) | payer MEDICARE, OTHER ==
[2018-12-16] MEDS ORDERED: SODIUM CHLORIDE 0.9% 500 ML 500 ML IV STA (10:25)
[2018-12-16] MEDS ORDERED: MECLIZINE 12.5 MG TAB PO STA (10:25)
--- NOTE | 2018-12-16 10:37 | ED ---
General Adult HPI - General Chief complaint: Dizziness Stated complaint: Both arms numbness/weakness Time Seen by Provider: 12/16/18 10:04 Source: patient, RN notes reviewed, old records reviewed Mode of arrival: EMS Limitations: no limitations - History of Present Illness Initial comments: 73 -year-old female presenting for evaluation of lightheadedness, vertigo. Patient has history of vertigo, states her symptoms have progressed over the past 3 days. She does state this is worse with standing and movement. Denies focal numbness or weakness, did have an episode of tingling in her bilateral upper extremities. She states that she has had some increased stress at home and didn't feel somewhat anxious. EMS report hyperventilation. Stable vital signs during EMS transport. Patient states symptoms have improved at the time of arrival. Denies chest pain. Denies dyspnea. Denies headache. Denies vision changes. She has had 3 days of epigastric abdominal pain which she describes as burning in nature. She is had some belching and increased flatus. No vomiting, no diarrhea. - Related Data Home Medications Medication Instructions Recorded Confirmed Acetaminophen-Codeine 300-30mg 1 tab PO HS 02/26/16 12/16/18 [Tylenol #3] Ergocalciferol [Vitamin D2] 50,000 unit PO Q30D 02/26/16 12/16/18 Simvastatin [Zocor] 20 mg PO HS 02/26/16 12/16/18 Ubidecarenone [Co Q-10] 100 mg PO DAILY 02/26/16 12/16/18 Sertraline [Zoloft] 50 mg PO DAILY@1500 02/04/17 12/16/18 Aspirin [Adult Low Dose Aspirin EC] 81 mg PO DAILY 07/21/17 12/16/18 Loperamide [Imodium] 2 mg PO DAILY 07/21/17 12/16/18 Calcium Carbonate [Calcium] 600 mg PO BID 12/16/18 12/16/18 Previous Rx's Medication Instructions Recorded Meclizine [Antivert] 25 mg PO TID PRN #15 tab 12/16/18 Allergies Allergy/AdvReac Type Severity Reaction Status Date / Time Penicillins Allergy Swelling/Skin Verified 12/16/18 10:49 Blisters steroids Allergy Severe See Comment Uncoded 07/27/17 11:02 Review of Systems ROS Statement: Those systems with pertinent positive or pertinent negative responses have been documented in the HPI. ROS Other: All systems not noted in ROS Statement are negative. Past Medical History Past Medical History: Hyperlipidemia, Osteoarthritis (OA) Additional Past Medical History / Comment(s): hx. chronic diarrhea-possible gluten or lactose problem History of Any Multi-Drug Resistant Organisms: None Reported Past Surgical History: Bladder Surgery, Breast Surgery, Cholecystectomy, Joint Replacement, Orthopedic Surgery Additional Past Surgical History / Comment(s): Right total hip, bilateral bunionectomy, cyst off back, colonoscopy, bladder suspension, cataract surg., breast biopsies-cyst, right lower extremity vein stripping. left shoulder surgery Past Anesthesia/Blood Transfusion Reactions: Motion Sickness, Postoperative Nausea & Vomiting (PONV) Additional Past Anesthesia/Blood Transfusion Reaction / Comment(s): Sister has PONV. Past Psychological History: Anxiety, Depression Smoking Status: Never smoker Past Alcohol Use History: None Reported Past Drug Use History: None Reported - Past Family History Mother Family Medical History: CVA/TIA, Myocardial Infarction ([place]) Additional Family Medical History / Comment(s): Mother at age 72 with history of myocardial infarction and CVA. Father Family Medical History: CVA/TIA, Diabetes Mellitus Additional Family Medical History / Comment(s): Father at age 64 had multiple CVAs with history of diabetes. Brother(s) Additional Family Medical History / Comment(s): Patient has 1 brother with no major medical problems. Sister(s) Additional Family Medical History / Comment(s): Patient has 2 sisters. One sister has history of vertigo and diarrhea. One sister has hypertension. Son(s) Additional Family Medical History / Comment(s): Patient has 3 sons. One has high iron levels. One is alcoholic. General Exam Limitations: no limitations General appearance: in no apparent distress Head exam: Present: atraumatic, normocephalic Eye exam: Present: normal appearance, PERRL, EOMI ENT exam: Present: normal exam Neck exam: Present: normal inspection. Absent: tenderness, meningismus Respiratory exam: Present: normal lung sounds bilaterally. Absent: respiratory distress, wheezes Cardiovascular Exam: Present: regular rate, normal rhythm GI/Abdominal exam: Present: soft. Absent: distended, tenderness Extremities exam: Present: normal inspection, normal capillary refill. Absent: pedal edema, calf tenderness Neurological exam: Present: alert, oriented X3, CN II-XII intact, other (No ataxia, normal [id number], normal pbli-[id number]). Absent: motor sensory deficit Psychiatric exam: Present: normal affect, normal mood Skin exam: Present: warm, dry, intact. Absent: cyanosis, diaphoretic Course Vital Signs 12/16/18 10:10 Temperature 97.5 F L Pulse Rate 82 Respiratory 18 Rate Blood Pressure 134/72 O2 Sat by Pulse 99 Oximetry EKG Findings - EKG Comments: EKG Findings:: EKG: Normal sinus rhythm, T-wave inversion in V2 no ST segment elevation or depression, rate of 66, CO interval 142, QRS duration 76, QTC 463 Medical Decision Making - Medical Decision Making 73-year-old female history of vertigo presents with chief complaint of dizziness. This is positional. Similar to previous episodes of vertigo in the past. There is no ataxia, no focal findings on neurologic exam. Patient has normal CBC, normal CMP, troponin is negative which was obtained secondary to some epigastric pain, no chest pain. Chest x-ray negative for focal pneumonia for acute findings. CT head negative for intracranial hemorrhage or mass effect. Urinalysis negative for signs of infection. Patient feeling better after meclizine and 500 mL of normal saline. She can be discharged home at this time with outpatient follow-up. She previously followed with physical therapy regarding her vertigo symptoms and will follow-up with this practitioner as well as her primary care physician. - Lab Data Result diagrams: 12/16/18 10:25 12/16/18 10:25 Lab Results 12/16/18 12/16/18 12/16/18 Range/Units 10:25 10:25 10:25 WBC 5.5 (3.8-10.6) k/uL RBC 4.73 (3.80-5.40) m/uL Hgb 14.0 (11.4-16.0) gm/dL Hct 42.6 (34.0-46.0) % MCV 90.1 (80.0-100.0) fL MCH 29.7 (25.0-35.0) pg MCHC 33.0 (31.0-37.0) g/dL RDW 13.0 (11.5-15.5) % Plt Count 257 (150-450) k/uL Neutrophils % 52 % Lymphocytes % 36 % Monocytes % 6 % Eosinophils % 3 % Basophils % 1 % Neutrophils # 2.9 (1.3-7.7) k/uL Lymphocytes # 2.0 (1.0-4.8) k/uL Monocytes # 0.3 (0-1.0) k/uL Eosinophils # 0.2 (0-0.7) k/uL Basophils # 0.0 (0-0.2) k/uL PT 9.8 (9.0-12.0) sec INR 0.9 (<1.2) APTT 20.0 L (22.0-30.0) sec Sodium 141 (137-145) mmol/L Potassium 4.1 (3.5-5.1) mmol/L Chloride 109 H (98-107) mmol/L Carbon Dioxide 23 (22-30) mmol/L Anion Gap 9 mmol/L BUN 12 (7-17) mg/dL Creatinine 0.74 (0.52-1.04) mg/dL Est GFR (CKD-EPI)AfAm >90 (>60 ml/min/1.73 sqM) Est GFR (CKD-EPI)NonAf 82 (>60 ml/min/1.73 sqM) Glucose 108 H (74-99) mg/dL Calcium 9.6 (8.4-10.2) mg/dL Total Bilirubin 0.7 (0.2-1.3) mg/dL AST 23 (14-36) U/L ALT 29 (9-52) U/L Alkaline Phosphatase 58 (38-126) U/L Total Creatine Kinase (30-135) U/L CK-MB (CK-2) (0.0-2.4) ng/mL CK-MB (CK-2) Rel Index Troponin I (0.000-0.034) ng/mL Total Protein 6.5 (6.3-8.2) g/dL Albumin 4.2 (3.5-5.0) g/dL Urine Color Urine Appearance (Clear) Urine pH (5.0-8.0) Ur Specific [place] (1.001-1.035) Urine Protein (Negative) Urine Glucose (UA) (Negative) Urine Ketones (Negative) Urine Blood (Negative) Urine Nitrite (Negative) Urine Bilirubin (Negative) Urine Urobilinogen (<2.0) mg/dL Ur Leukocyte Esterase (Negative) 12/16/18 12/16/18 Range/Units 10:25 11:17 WBC (3.8-10.6) k/uL RBC (3.80-5.40) m/uL Hgb (11.4-16.0) gm/dL Hct (34.0-46.0) % MCV (80.0-100.0) fL MCH (25.0-35.0) pg MCHC (31.0-37.0) g/dL RDW (11.5-15.5) % Plt Count (150-450) k/uL Neutrophils % % Lymphocytes % % Monocytes % % Eosinophils % % Basophils % % Neutrophils # (1.3-7.7) k/uL Lymphocytes # (1.0-4.8) k/uL Monocytes # (0-1.0) k/uL Eosinophils # (0-0.7) k/uL Basophils # (0-0.2) k/uL PT (9.0-12.0) sec INR (<1.2) APTT (22.0-30.0) sec Sodium (137-145) mmol/L Potassium (3.5-5.1) mmol/L Chloride (98-107) mmol/L Carbon Dioxide (22-30) mmol/L Anion Gap mmol/L BUN (7-17) mg/dL Creatinine (0.52-1.04) mg/dL Est GFR (CKD-EPI)AfAm (>60 ml/min/1.73 sqM) Est GFR (CKD-EPI)NonAf (>60 ml/min/1.73 sqM) Glucose (74-99) mg/dL Calcium (8.4-10.2) mg/dL Total Bilirubin (0.2-1.3) mg/dL AST (14-36) U/L ALT (9-52) U/L Alkaline Phosphatase (38-126) U/L Total Creatine Kinase 160 H (30-135) U/L CK-MB (CK-2) 0.3 (0.0-2.4) ng/mL CK-MB (CK-2) Rel Index 0.2 Troponin I <0.012 (0.000-0.034) ng/mL Total Protein (6.3-8.2) g/dL Albumin (3.5-5.0) g/dL Urine Color Yellow Urine Appearance Clear (Clear) Urine pH 8.5 H (5.0-8.0) Ur Specific [place] 1.011 (1.001-1.035) Urine Protein Trace H (Negative) Urine Glucose (UA) Negative (Negative) Urine Ketones Negative (Negative) Urine Blood Negative (Negative) Urine Nitrite Negative (Negative) Urine Bilirubin Negative (Negative) Urine Urobilinogen <2.0 (<2.0) mg/dL Ur Leukocyte Esterase Negative (Negative) Disposition Clinical Impression: Vertigo Disposition: HOME SELF-CARE Condition: Good Instructions (If sedation given, give patient instructions): Dizziness (ED) Prescriptions: Meclizine [Antivert] 25 mg PO TID PRN #15 tab PRN Reason: Vertigo Is patient prescribed a controlled substance at d/c from ED?: No Referrals: Dominic Mcdonald MD [Primary Care Provider] - 1-2 days Time of Disposition: 13:11
[2018-12-16 10:55] LABS: Basophils % (A) 1 %; Eosinophils # (A) 0.2 k/uL (0-0.7); Eosinophils % (A) 3 %; HCT 42.6 % (34.0-46.0); Lymphocytes % (A) 36 %; MCH 29.7 pg (25.0-35.0); MCV 90.1 fL (80.0-100.0); Mean Platelet Volume 6.5; Monocytes # (A) 0.3 k/uL (0-1.0); Monocytes % (A) 6 %; Neutrophils # (A) 2.9 k/uL (1.3-7.7); Neutrophils % (A) 52 %; Platelet Count 257 k/uL (150-450); RBC 4.73 m/uL (3.80-5.40); WBC 5.5 k/uL (3.8-10.6)
[2018-12-16 11:08] LABS: INR 0.9 (<1.2); Prothrombin Time 9.8 sec (9.0-12.0)
[2018-12-16 11:11] LABS: ALT 29 U/L (9-52); AST 23 U/L (14-36); Albumin 4.2 g/dL (3.5-5.0); Alkaline Phosphatase 58 U/L (38-126); Anion Gap 9 mmol/L; Blood Urea Nitrogen 12 mg/dL (7-17); Calcium 9.6 mg/dL (8.4-10.2); Carbon Dioxide 23 mmol/L (22-30); Chloride 109 mmol/L (98-107); Glucose 108 mg/dL (74-99); Potassium 4.1 mmol/L (3.5-5.1); Sodium 141 mmol/L (137-145); Total Bilirubin 0.7 mg/dL (0.2-1.3); Total Protein 6.5 g/dL (6.3-8.2)
[2018-12-16 11:13] LABS: Creatine Kinase 160 U/L (30-135)
[2018-12-16 11:25] LABS: Creatine Kinase MB 0.3 ng/mL (0.0-2.4); Troponin I <0.012 ng/mL (0.000-0.034)
--- NOTE | 2018-12-16 12:20 | XR ---
EXAMINATION TYPE: XR chest 2V DATE OF EXAM: 12/16/2018 COMPARISON: Prior chest x-ray September 21, 2013 HISTORY: Syncope and weakness. TECHNIQUE: Frontal and lateral views of the chest are obtained. FINDINGS: There is chronic parenchymal change without suspicious focal air space opacity, pleural ef fusion, or pneumothorax seen. The cardiac silhouette size is upper limits of normal. The osseous s tructures are intact. Cholecystectomy clips are noted. IMPRESSION: No acute cardiopulmonary process. No significant change from prior.
--- NOTE | 2018-12-16 12:21 | CT ---
EXAMINATION TYPE: CT brain wo con DATE OF EXAM: 12/16/2018 HISTORY: Dizziness with headache CT DLP: 1099.4 mGycm. Automated Exposure Control for Dose Reduction was Utilized. TECHNIQUE: CT scan of the head is performed without contrast. COMPARISON: CT brain September 11, 2013. FINDINGS: There is no acute intracranial hemorrhage or midline shift identified. There is diffuse v entricular and sulcal prominence consistent with diffuse age-related cerebral atrophy. Delgadillo-white mat ter differentiation is fairly well preserved. The globes are intact and the visualized sinuses are c lear. IMPRESSION: No acute intracranial hemorrhage or midline shift. There is mild diffuse age-related ce rebral atrophy redemonstrated. No significant change from prior.
[2018-12-16 12:52] LABS: Appearance,Urine Clear (Clear); Bilirubin,Urine Negative (Negative); Blood,Urine Negative (Negative); Color,Urine Yellow; Glucose,Urine (UA) Negative (Negative); Ketones,Urine Negative (Negative); Leukocyte Esterase,Urine Negative (Negative); Nitrite,Urine Negative (Negative); PH, Urine 8.5 (5.0-8.0); Protein,Urine Trace (Negative); Specific Gravity,Urine 1.011 (1.001-1.035); Urobilinogen,Urine <2.0 mg/dL (<2.0)
[2018-12-16 13:40] VITALS: BP 130/68; PULSE 69; RESP 19; TEMP 98.3
== END 2018-12-16 13:35 | disposition home or self-care (01) ==
LOC: EC 10:01
DX: R42 Dizziness and giddiness (principal); R20.0 Anesthesia of skin; R53.1 Weakness; R10.13 Epigastric pain; E78.5 Hyperlipidemia, unspecified; M19.90 Unspecified osteoarthritis, unspecified site; F41.9 Anxiety disorder, unspecified; F32.9 Major depressive disorder, single episode, unspecified; Z79.82 Long term (current) use of aspirin; Z79.899 Other long term (current) drug therapy; Z88.0 Allergy status to penicillin; Z88.8 Allergy status to other drugs, medicaments and biological substances
CPT/HCPCS: 36415; 70450; 71046; 80053; 81003; 82550; 82553; 84484; 85025; 85610; 85730; 93005; 96360; 99285

== ENCOUNTER → 2019-05-31 | Outpatient (CLI) | payer MEDICARE ==
--- NOTE | 2019-05-31 14:25 | MM ---
Reason for exam: screening (asymptomatic). Last mammogram was performed 1 year and 1 month ago. History: Patient is postmenopausal. Family history of breast cancer in maternal aunt. Cyst aspiration of the left breast. Cyst aspiration of the right breast. Excisional biopsy of the left breast. Excisional biopsy of the right breast. Physical Findings: A clinical breast exam by your physician is recommended on an annual basis and results should be correlated with mammographic findings. MG 3D Screening Mammo W/Cad Bilateral CC and MLO view(s) were taken. Prior study comparison: April 28, 2018, bilateral MG 3d screening mammo w/cad. April 07, 2017, bilateral MG 3d screening mammo w/cad. There are scattered fibroglandular densities. There is chronic nodularity in the left breast. There is no discrete abnormality. ASSESSMENT: Negative, BI-RAD 1 RECOMMENDATION: Routine screening mammogram of both breasts in 1 year.
== END | disposition home or self-care (01) ==
LOC: RADMAMWWP 10:27
PROVIDERS: ATTEND Internal Medicine Geriatric Medicine
DX: Z12.31 Encounter for screening mammogram for malignant neoplasm of breast (principal)
CPT/HCPCS: 77063; 77067

== ENCOUNTER → 2020-07-22 | Outpatient (CLI) | payer MEDICARE ==
--- NOTE | 2020-07-22 11:40 | BD ---
EXAMINATION TYPE: Axial Bone Density DATE OF EXAM: 07/22/2020 COMPARISON: DEXA bone scan April 28, 2018 CLINICAL HISTORY: Postmenopausal female, vitamin D deficiency Height: 5 FT 3 IN Weight: 143 FRAX RISK QUESTIONS: Alcohol (3 or more units per day): NO Family History (Parent hip fracture): NO Glucocorticoids (More than 3mos): NO (Ex: prednisone, prednisolone, methylprednisolone, dexamethasone, and hydrocortisone). History of Fracture in Adulthood: YES Secondary Osteoporosis: 1. Type 1 Diabetes: NO 2. Hyperthyroidism: NO 3. Menopause before 45: NO 4. Malnutrition: NO 5. Chronic liver disease: NO Rheumatoid Arthritis: NO Current Tobacco Use: NO RISK FACTORS HISTORY OF: Surgery to Spine/Hip(right/left)/Wrist (right/left): RT HIP REPLACEMENT When: 2017 Family History of Osteoporosis: NO Active: YES Postmenopausal woman: AGE 50 Lost more than 2 inches in height since high school: NO MEDICATIONS: Additional Medications: SIMVASTATIN, SERTRALINE, TYLENOL, ASPIRIN, CALCIUM,ZOLOFT, VIT D Additional History: EXAM MEASUREMENTS: Bone mineral densitometry was performed using the [employer] System. Bone mineral density as measured about the Lumbar spine is: ----- L1-L4(G/cm2): 0.977 T Score Values are as follows: ----- L2: -1.3 ----- L3: -1.7 ----- L4: -2.0 ----- L1-L4: -1.7 Bone mineral density has: INCREASED 12.3 % since study of: 2017 Bone mineral density about the L hip (g/cm2): 0.709 T Score values are as follows: -----L Neck: -2.4 -----L Total: -2.0 Bone mineral density has: INCREASED 3.3 % since study of: 2017 IMPRESSION: Osteopenia (T Score between -2.5 and -1) remains present. Bone density is slightly increased or impro norberto from prior. There remains slightly increased risk of fracture and the patient may be considered for treatment. Re-Screen 2-5 years. NOTE: T-SCORE=SD OF THE YOUNG ADULT MEAN.
--- NOTE | 2020-07-23 14:07 | MM ---
Reason for exam: screening (asymptomatic). Last mammogram was performed 1 year and 2 months ago. History: Patient is postmenopausal. Family history of breast cancer in sister at age 75 and breast cancer in maternal aunt. Cyst aspiration of the left breast. Cyst aspiration of the right breast. Excisional biopsy of the left breast. Excisional biopsy of the right breast. Physical Findings: A clinical breast exam by your physician is recommended on an annual basis and results should be correlated with mammographic findings. MG 3D Screening Mammo W/Cad Bilateral CC and MLO view(s) were taken. Prior study comparison: May 31, 2019, bilateral MG 3d screening mammo w/cad. April 28, 2018, bilateral MG 3d screening mammo w/cad. There are scattered fibroglandular densities. No significant changes when compared with prior studies. ASSESSMENT: Negative, BI-RAD 1 RECOMMENDATION: Routine screening mammogram of both breasts in 1 year.
== END | disposition home or self-care (01) ==
LOC: RADMAMWWP 09:35
PROVIDERS: ATTEND Internal Medicine Geriatric Medicine
DX: Z12.31 Encounter for screening mammogram for malignant neoplasm of breast (principal); M85.80 Other specified disorders of bone density and structure, unspecified site; M81.0 Age-related osteoporosis without current pathological fracture
CPT/HCPCS: 77063; 77067; 77080

== ENCOUNTER → 2021-09-12 | Outpatient (CLI) | payer MEDICARE ==
--- NOTE | 2021-09-15 11:22 | MM ---
Reason for exam: screening (asymptomatic). Last mammogram was performed 1 year and 2 months ago. History: Patient is postmenopausal. Family history of breast cancer in sister at age 75 and breast cancer in maternal aunt. Cyst aspiration of the left breast. Cyst aspiration of the right breast. Excisional biopsy of the left breast. Excisional biopsy of the right breast. Physical Findings: A clinical breast exam by your physician is recommended on an annual basis and results should be correlated with mammographic findings. MG Screening Mammo w CAD Bilateral CC and MLO view(s) were taken. Prior study comparison: July 22, 2020, bilateral MG 3d screening mammo w/cad. May 31, 2019, bilateral MG 3d screening mammo w/cad. There are scattered fibroglandular densities. Finding #1: There is a 6 mm circumscribed round mass in the middle, central position of the left breast. Finding #2: There are typically benign vascular calcifications in both breasts. Increase in size since July 22, 2020 and May 31, 2019. ASSESSMENT: Incomplete: need additional imaging evaluation, BI-RAD 0 RECOMMENDATION: Ultrasound of the left breast. [facility] will attempt to contact patient to return for ultrasound.
== END | disposition home or self-care (01) ==
LOC: RADMAMWWP 12:03
PROVIDERS: ATTEND Internal Medicine Geriatric Medicine
DX: Z12.31 Encounter for screening mammogram for malignant neoplasm of breast (principal)
CPT/HCPCS: 77067

== ENCOUNTER → 2021-09-16 | Outpatient (CLI) | payer MEDICARE ==
--- NOTE | 2021-09-16 14:48 | USB ---
Reason for exam: additional evaluation requested from abnormal screening. History: Patient is postmenopausal. Family history of breast cancer in sister at age 75 and breast cancer in maternal aunt. Cyst aspiration of the left breast. Cyst aspiration of the right breast. Excisional biopsy of the left breast. Excisional biopsy of the right breast. Physical Findings: Nurse did not find any significant physical abnormalities on exam. US Breast Workup Limited LT Left limited breast ultrasound including focal area of concern, retroareolar and axilla demonstrates a 0.5 x 0.4 x 0.2cm oval, cystic lesion at 3 o'clock, benign thin walled cyst and a 1.0 x 0.9 x 0.5cm lymph node at the axilla. These results were verbally communicated with the patient and result sheet given to the patient on 09/16/21. ASSESSMENT: Benign, BI-RAD 2 RECOMMENDATION: Return to routine screening mammogram schedule for both breasts.
== END | disposition home or self-care (01) ==
LOC: RADUSWWP 14:02
PROVIDERS: ATTEND Internal Medicine Geriatric Medicine
DX: R92.8 Other abnormal and inconclusive findings on diagnostic imaging of breast (principal)

== ENCOUNTER 2022-09-08 15:04 | Emergency (ER) | payer MEDICARE ==
[2022-09-08 15:14] VITALS: RESP 18
--- NOTE | 2022-09-08 15:36 | ED ---
General Adult HPI - General Chief complaint: Abdominal Pain Stated complaint: abd pain Time Seen by Provider: 09/08/22 15:09 Source: patient, EMS Mode of arrival: EMS Limitations: no limitations - History of Present Illness Initial comments: Dictation was produced using [employer] dictation software. please excuse any grammatical, word or spelling errors. Chief Complaint: 77-year-old female presents to the emergency department for abdominal pain History of Present Illness: 77-year-old female she was sitting on the toilet today when all of a sudden she started to feel some sharp pain that went from her right abdomen across. Patient states that she has history of irritable bowel syndrome. Patient denies any fever, chills or night sweats. Has a history of bladder surgery and cholecystectomy. Patient states that she has no nausea. She allegedly has a lower abdominal hernia The ROS documented in this emergency department record has been reviewed and confirmed by me. Those systems with pertinent positive or negative responses have been documented in the HPI. All other systems are other negative and/or noncontributory. PHYSICAL EXAM: General Impression: Alert and oriented x3, not in acute distress HEENT: Normocephalic atraumatic, extra-ocular movements intact, pupils equal and reactive to light bilaterally, mucous membranes moist. Cardiovascular: Heart regular rate and rhythm Chest: Able to complete full sentences, no retractions, no tachypnea Abdomen: abdomen soft, non-tender, non-distended, no organomegaly, palpatory tenderness over the anterior pelvic region on the right Musculoskeletal: Pulses present and equal in all extremities, no peripheral edema Motor: no focal deficits noted Neurological: CN II-XII grossly intact, no focal motor or sensory deficits noted Skin: Intact with no visualized rashes Psych: Normal affect and mood ED course: 77-year-old female presents to the emergency Department for reported abdominal pain. Physical examination suggests that she has pain over the right anterior pelvic ridge at the level of the ASIS vital signs upon arrival are within acceptable limits. Patient denies any other abdominal symptoms. Laboratory evaluation obtained. CBC unremarkable. Metabolic panel within acceptable limits. Urinalysis shows 36 white blood cells those squamous epithelial cells of 10 just getting dirty catch. Patient observed in emergency department for 3 hours and 25 minutes. Reevaluated at bedside at 6:30 PM 5 be stable medical condition. Patient be discharged. Symptoms localized to her pelvis. She does not have any abdominal tenderness. Patient be discharged. Pending urine culture. Patient has appointment with her primary care doctor in 2 days. - Related Data Home Medications Medication Instructions Recorded Confirmed Ergocalciferol [Vitamin D2] 50,000 unit PO Q30D 02/26/16 09/08/22 Simvastatin [Zocor] 20 mg PO HS 02/26/16 09/08/22 Ubidecarenone [Co Q-10] 100 mg PO DAILY 02/26/16 09/08/22 Aspirin [Adult Low Dose Aspirin EC] 81 mg PO DAILY 07/21/17 09/08/22 Loperamide [Imodium] 2 mg PO QID PRN 07/21/17 09/08/22 Acetaminophen with Codeine 1 tab PO Q6H PRN 06/23/22 09/08/22 [Acetaminophen-Cod #3 Tablet] ALPRAZolam [Xanax] 0.25 mg PO BID PRN 09/08/22 09/08/22 Albuterol Sulfate [Ventolin HFA] 2 puff INHALATION RT-Q6H PRN 09/08/22 09/08/22 Alendronate Sodium 70 mg PO RICHARDS 09/08/22 09/08/22 Calcium Carbonate/Vitamin D3 1 cap PO DAILY 09/08/22 09/08/22 [Calcium 600 mg-D3 10 Mcg (400 Iu)] Cyanocobalamin [Vitamin B-12] 500 mcg PO DAILY 09/08/22 09/08/22 Meclizine [Antivert] 25 mg PO TID PRN 09/08/22 09/08/22 Allergies Allergy/AdvReac Type Severity Reaction Status Date / Time Penicillins Allergy Swelling/Skin Verified 09/08/22 17:59 Blisters steroids Allergy Severe Hot Uncoded 09/08/22 15:14 flashes, felt like something crawling under skin. Review of Systems ROS Statement: Those systems with pertinent positive or pertinent negative responses have been documented in the HPI. ROS Other: All systems not noted in ROS Statement are negative. Past Medical History Past Medical History: Hyperlipidemia, Osteoarthritis (OA) Additional Past Medical History / Comment(s): stool covered in dark blood,sharp pain rt side, bulging left groin, chronic diarrhea,feels like large pills get stuck in my throat, IBS History of Any Multi-Drug Resistant Organisms: None Reported Past Surgical History: Bladder Surgery, Breast Surgery, Cholecystectomy, Joint Replacement, Orthopedic Surgery Additional Past Surgical History / Comment(s): Right total hip, bilateral bunionectomy, cyst off back, colonoscopy, bladder suspension, cataract surg., breast biopsies-cyst, right lower extremity vein stripping. left shoulder surgery Past Anesthesia/Blood Transfusion Reactions: Motion Sickness, Postoperative Nausea & Vomiting (PONV) Additional Past Anesthesia/Blood Transfusion Reaction / Comment(s): Sister has PONV. Past Psychological History: Anxiety, Depression Smoking Status: Former smoker Past Alcohol Use History: None Reported Past Drug Use History: None Reported - Past Family History Mother Family Medical History: CVA/TIA, Myocardial Infarction (NH) Additional Family Medical History / Comment(s): Mother at age 72 with history of myocardial infarction and CVA. Father Family Medical History: CVA/TIA, Diabetes Mellitus Additional Family Medical History / Comment(s): Father at age 64 had multiple CVAs with history of diabetes. Brother(s) Additional Family Medical History / Comment(s): Patient has 1 brother with no major medical problems. Sister(s) Family Medical History: Cancer Additional Family Medical History / Comment(s): Patient has 2 sisters. One sister has history of vertigo and diarrhea. One sister has hypertension,bowel CA, Son(s) Additional Family Medical History / Comment(s): Patient has 3 sons. One has high iron levels. One is alcoholic. General Exam Limitations: no limitations Course Vital Signs 09/08/22 09/08/22 15:09 15:16 Temperature 97.0 F L Pulse Rate 65 68 Respiratory 18 Rate Blood Pressure 94/66 135/70 O2 Sat by Pulse 97 97 Oximetry Medical Decision Making - Lab Data Result diagrams: 09/08/22 16:25 09/08/22 16:25 Lab Results 09/08/22 09/08/22 09/08/22 Range/Units 16:25 16:25 17:15 WBC 12.0 H (3.8-10.6) k/uL RBC 4.93 (3.80-5.40) m/uL Hgb 15.3 (11.4-16.0) gm/dL Hct 45.5 (34.0-46.0) % MCV 92.3 (80.0-100.0) fL MCH 31.0 (25.0-35.0) pg MCHC 33.6 (31.0-37.0) g/dL RDW 12.2 (11.5-15.5) % Plt Count 251 (150-450) k/uL MPV 8.1 Neutrophils % 83 % Lymphocytes % 11 % Monocytes % 4 % Eosinophils % 1 % Basophils % 1 % Neutrophils # 10.0 H (1.3-7.7) k/uL Lymphocytes # 1.4 (1.0-4.8) k/uL Monocytes # 0.5 (0-1.0) k/uL Eosinophils # 0.1 (0-0.7) k/uL Basophils # 0.1 (0-0.2) k/uL Sodium 139 (137-145) mmol/L Potassium 3.6 (3.5-5.1) mmol/L Chloride 108 H (98-107) mmol/L Carbon Dioxide 18 L (22-30) mmol/L Anion Gap 13 mmol/L BUN 14 (7-17) mg/dL Creatinine 0.65 (0.52-1.04) mg/dL Est GFR (CKD-EPI)AfAm >90 (>60 ml/min/1.73 sqM) Est GFR (CKD-EPI)NonAf 87 (>60 ml/min/1.73 sqM) Glucose 90 (74-99) mg/dL Calcium 8.7 (8.4-10.2) mg/dL Total Bilirubin 0.5 (0.2-1.3) mg/dL AST 23 (14-36) U/L ALT 18 (4-34) U/L Alkaline Phosphatase 67 (38-126) U/L Total Protein 6.5 (6.3-8.2) g/dL Albumin 4.3 (3.5-5.0) g/dL Lipase 157 (23-300) U/L Urine Color Yellow Urine Appearance Cloudy H (Clear) Urine pH 5.5 (5.0-8.0) Ur Specific [place] 1.026 (1.001-1.035) Urine Protein Trace H (Negative) Urine Glucose (UA) Negative (Negative) Urine Ketones Negative (Negative) Urine Blood Trace H (Negative) Urine Nitrite Negative (Negative) Urine Bilirubin Negative (Negative) Urine Urobilinogen <2.0 (<2.0) mg/dL Ur Leukocyte Esterase Large H (Negative) Urine RBC 8 H (0-5) /hpf Urine WBC 36 H (0-5) /hpf Ur Squamous Epith Cells 10 H (0-4) /hpf Urine Bacteria Rare H (None) /hpf Hyaline Casts 7 H (0-2) /lpf Urine Mucus Moderate H (None) /hpf Disposition Clinical Impression: Abdominal pain Disposition: HOME SELF-CARE Condition: Good Instructions (If sedation given, give patient instructions): Abdominal Pain (ED) Is patient prescribed a controlled substance at d/c from ED?: No Referrals: Dominic Mcdonald MD [Primary Care Provider] - 1-2 days Time of Disposition: 18:31
[2022-09-08 16:39] LABS: Basophils # (A) 0.1 k/uL (0-0.2); Basophils % (A) 1 %; Eosinophils # (A) 0.1 k/uL (0-0.7); Eosinophils % (A) 1 %; HCT 45.5 % (34.0-46.0); HGB 15.3 gm/dL (11.4-16.0); Lymphocytes # (A) 1.4 k/uL (1.0-4.8); Lymphocytes % (A) 11 %; MCHC 33.6 g/dL (31.0-37.0); MCV 92.3 fL (80.0-100.0); Mean Platelet Volume 8.1; Monocytes # (A) 0.5 k/uL (0-1.0); Monocytes % (A) 4 %; Neutrophils % (A) 83 %; Platelet Count 251 k/uL (150-450); RBC 4.93 m/uL (3.80-5.40); RDW 12.2 % (11.5-15.5)
[2022-09-08 16:46] LABS: ALT 18 U/L (4-34); AST 23 U/L (14-36); African American GFR (CKD) >90 (>60 ml/min/1.73 sqM); Albumin 4.3 g/dL (3.5-5.0); Alkaline Phosphatase 67 U/L (38-126); Anion Gap 13 mmol/L; Blood Urea Nitrogen 14 mg/dL (7-17); Calcium 8.7 mg/dL (8.4-10.2); Carbon Dioxide 18 mmol/L (22-30); Chloride 108 mmol/L (98-107); Glucose 90 mg/dL (74-99); Lipase 157 U/L (23-300); Non-African American GFR(CKD) 87 (>60 ml/min/1.73 sqM); Potassium 3.6 mmol/L (3.5-5.1); Sodium 139 mmol/L (137-145); Total Bilirubin 0.5 mg/dL (0.2-1.3); Total Protein 6.5 g/dL (6.3-8.2)
[2022-09-08 17:28] LABS: Appearance,Urine Cloudy (Clear); Bacteria,Urine Rare /hpf; Bilirubin,Urine Negative (Negative); Blood,Urine Trace (Negative); Color,Urine Yellow; Glucose,Urine (UA) Negative (Negative); Hyaline Casts,Urine 7 /lpf (0-2); Ketones,Urine Negative (Negative); Leukocyte Esterase,Urine Large (Negative); Mucus,Urine Moderate /hpf; Nitrite,Urine Negative (Negative); PH, Urine 5.5 (5.0-8.0); Protein,Urine Trace (Negative); RBC,Urine 8 /hpf (0-5); Specific Gravity,Urine 1.026 (1.001-1.035); Squamous Epithelial Cell,Urine 10 /hpf (0-4); Urobilinogen,Urine <2.0 mg/dL (<2.0); WBC,Urine 36 /hpf (0-5)
[2022-09-08] MEDS ORDERED: traMADol 50 MG STARTER PACK 3 TAB BTL PO STA (18:32)
[2022-09-08 19:09] VITALS: BP 148/78; PULSE 87; TEMP 97.9
== END 2022-09-08 19:09 | disposition home or self-care (01) ==
LOC: EC 15:04
DX: R10.9 Unspecified abdominal pain (principal); E78.5 Hyperlipidemia, unspecified; M19.90 Unspecified osteoarthritis, unspecified site; F32.A Depression, unspecified; F41.9 Anxiety disorder, unspecified; Z87.891 Personal history of nicotine dependence; Z79.83 Long term (current) use of bisphosphonates; Z88.0 Allergy status to penicillin; Z88.8 Allergy status to other drugs, medicaments and biological substances; Z79.899 Other long term (current) drug therapy
CPT/HCPCS: 36415; 80053; 81001; 83690; 85025; 87086; 99284

== ENCOUNTER → 2022-11-04 | Outpatient (CLI) | payer MEDICARE ==
--- NOTE | 2022-11-05 15:58 | MM ---
Reason for Exam: Screening (asymptomatic). Last mammogram was performed 1 year(s) and 1 month(s) ago. Patient History: Menarche at age 14. First Full-Term at age 22. Right ovary removed at age 30. Postmenopausal. Cyst Aspiration on the Right side. Cyst Aspiration on the Left side. Excisional Biopsy on the Right side. Excisional Biopsy on the Left side. Maternal aunt had breast cancer. Sister had breast cancer, age 75. Risk Values: Azucena 5 year model risk: 5.0%. NCI Lifetime model risk: 10.0%. Prior Study Comparison: 05/31/2019 Bilateral Screening Mammogram, [facility]. 07/22/2020 Bilateral Screening Mammogram, [facility]. 09/12/2021 Bilateral Screening Mammogram, [facility]. Tissue Density: There are scattered fibroglandular densities. Findings: Analyzed By CAD. Pattern appears symmetrical and stable. Benign vascular calcification is present bilaterally. Chronic nodularity is in the mid left breast. No suspicious groups of microcalcifications, spiculated or lobular masses, architectural distortion or other secondary signs of malignancy are mammographically apparent. Overall Assessment: Benign, BI-RAD 2 Management: Screening Mammogram of both breasts in 1 year. A negative mammogram report should not preclude additional follow up of suspicious palpable abnormalities. Patient should continue monthly self breast exam. A clinical breast exam by your physician is recommended on an annual basis and results should be correlated with mammographic findings. Electronically signed and approved by: Warren Drake D.O. Radiologis
== END | disposition home or self-care (01) ==
LOC: RADMAMWWP 14:13
PROVIDERS: ATTEND Internal Medicine Geriatric Medicine
DX: Z12.31 Encounter for screening mammogram for malignant neoplasm of breast (principal); Z78.0 Asymptomatic menopausal state; Z80.3 Family history of malignant neoplasm of breast; Z98.890 Other specified postprocedural states
CPT/HCPCS: 77063; 77067

== ENCOUNTER → 2023-03-02 | Outpatient (CLI) | payer MEDICARE ==
--- NOTE | 2023-03-02 18:10 | CT ---
EXAMINATION TYPE: CT chest w con CT DLP: 440 mGycm, Automated exposure control for dose reduction was used. DATE OF EXAM: 03/02/2023 4:48 PM COMPARISON: None CLINICAL INDICATION:Female, 77 years old with history of R06.0; PHH, pain x 3 months TECHNIQUE: Multiple axial images were obtained through the chest. Sagittal and coronal reformats were created for review. Contrast used:100ml mL of Isovue 300 with IV Contrast Oral contrast used: none. FINDINGS: LUNGS/ PLEURA: Is no evidence of focal consolidation, pneumothorax or pleural effusion right upper zhou ng calcified granuloma. Left major fissure intrafissural lymph node1 AIRWAY: Patent and unremarkable. HEART: Size within normal limits. MEDIASTINUM: No gross evidence of adenopathy. VASCULATURE: No aortic aneurysm. No evidence for dissection. There is a three-vessel aortic arch. Ve ssels appear patent. Limited visualization of the pulmonary arterial vasculature due to phase of cont rast. MUSCULOSKELETAL: Mild disc degeneration changes are present throughout the thoracolumbar spine. SOFT TISSUES/LYMPH NODES: Unremarkable. LOWER NECK: No significant findings. UPPER ABDOMEN: Gallbladder surgically absent. IMPRESSION: No evidence for acute thoracic process to explain the patient's pain.
== END | disposition home or self-care (01) ==
LOC: RADCTMAIN 15:10
PROVIDERS: ATTEND Otolaryngology
DX: R06.1 Stridor (principal); R06.00 Dyspnea, unspecified
CPT/HCPCS: 94726; 94729; 94060; 82565; 84520; 71260; 36415; Q9967

== ENCOUNTER → 2023-10-26 | Outpatient (CLI) | payer MEDICARE ==
[2023-10-26 16:37] LABS: African American GFR (CKD) 82 (>60 ml/min/1.73 sqM); Blood Urea Nitrogen 15 mg/dL (7-17); Non-African American GFR(CKD) 72 (>60 ml/min/1.73 sqM)
--- NOTE | 2023-10-26 17:31 | CT ---
EXAMINATION TYPE: CT angio chest CT DLP: 146.30 mGycm, Automated exposure control for dose reduction was used. DATE OF EXAM: 10/26/2023 5:12 PM COMPARISON: 03/02/2023. CLINICAL INDICATION:Female, 78 years old with history of I26.99 PULMONARY EMBOLISM; cough, sob, r/o P E TECHNIQUE/CONTRAST: CTA scan of the thorax is performed with IV Contrast, patient injected with 64ml mL of Isovue 370, NH P images are created and reviewed these are created on a separate workstation.. FINDINGS: Motion limited exam. Pulmonary Artery: There is no evidence for a filling defect within the pulmonary vasculature to sugge st acute pulmonary embolism. The pulmonary artery is of normal size. Lungs/Pleura: No evidence of focal consolidation, pleural effusion or pneumothorax. Right upper lobe calcified granuloma. Airway: Large airways are patent. Heart: Heart is within normal limits for size. Vasculature: No evidence of aortic aneurysm. Mediastinum: No gross evidence of adenopathy. Musculoskeletal: No acute osseous abnormalities Soft Tissues: Unremarkable. Lower neck: No significant findings. Upper Abdomen: Gallbladder surgically absent. IMPRESSION: Motion limited exam, No evidence of pulmonary embolism. Follow up recommendations for incidental pulmonary nodules, if there are any, are per [employer] or [employer].
== END | disposition home or self-care (01) ==
LOC: RADCTMAIN 15:55
PROVIDERS: ATTEND Internal Medicine
DX: I26.99 Other pulmonary embolism without acute cor pulmonale (principal)
CPT/HCPCS: 82565; 84520; 71275; 36415; Q9967

== ENCOUNTER → 2023-11-24 | Outpatient (CLI) | payer MEDICARE ==
--- NOTE | 2023-11-26 19:55 | MM ---
Reason for Exam: Screening (asymptomatic). Last mammogram was performed 1 year(s) and 1 month(s) ago. Patient History: Menarche at age 14. First Full-Term at age 22. Right ovary removed at age 30. Postmenopausal. Cyst Aspiration on the Right side. Cyst Aspiration on the Left side. Excisional Biopsy on the Right side. Excisional Biopsy on the Left side. Maternal aunt had breast cancer. Sister had breast cancer, age 75. Risk Values: Azucena 5 year model risk: 5.0%. NCI Lifetime model risk: 9.4%. Prior Study Comparison: 07/22/2020 Bilateral Screening Mammogram, [facility]. 09/12/2021 Bilateral Screening Mammogram, [facility]. 11/04/2022 Bilateral MG 3D screening mammo w/cad, [facility]. Tissue Density: There are scattered fibroglandular densities. Findings: Analyzed By CAD. There is no suspicious group of microcalcifications or new suspicious mass in either breast. Overall Assessment: Negative, BI-RAD 1 Management: Screening Mammogram of both breasts in 1 year. See note below in regards to patient's increased 5 year Azucena score. Patient should continue monthly self-breast exams. A clinical breast exam by your physician is recommended on an annual basis. This exam should not preclude additional follow-up of suspicious palpable abnormalities. Note on Azucena scores and lifetime risk: 1. A Azucena score greater than 3% is considered moderate risk. If this is the case, consider specialist referral to assess eligibility for a risk reducing agent. 2. If overall lifetime risk for the development of breast cancer is 20% or higher, the patient may qualify for future screening with alternating mammogram and breast MRI. Electronically signed and approved by: Evelyn Watson M.D. Radiologist
== END | disposition home or self-care (01) ==
LOC: RADMAMWWP 15:13
PROVIDERS: ATTEND Internal Medicine Geriatric Medicine
DX: Z12.31 Encounter for screening mammogram for malignant neoplasm of breast (principal); Z80.3 Family history of malignant neoplasm of breast; Z78.0 Asymptomatic menopausal state
CPT/HCPCS: 77063; 77067

== ENCOUNTER → 2023-12-06 | Outpatient (CLI) | payer MEDICARE ==
--- NOTE | 2023-12-06 11:54 | BD ---
EXAMINATION TYPE: Axial Bone Density DATE OF EXAM: 12/06/2023 CLINICAL HISTORY: 78 years old Female. 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 Bone mineral density as measured about the Lumbar spine is: ----- L1-L4(G/cm2): 0.931 T Score Values are as follows: ----- L1: -2.0 ----- L2: -1.6 ----- L3: -2.1 ----- L4: -2.6 ----- L1-L4: -2.1 Z Score Values are as follows: ----- L1: 0.0 ----- L2: 0.4 ----- L3: -0.2 ----- L4: -0.7 ----- L1-L4: -0.1 Bone mineral density has: Decreased -4.7% since study of: 07-22-20 Bone mineral density about the L hip (g/cm2): 0.729 T Score values are as follows: -----L Neck: -2.5 -----L Total: -2.2 Z Score values are as follows: -----L Neck: -0.3 -----L Total: -0.2 Bone mineral density has: Decreased -3.7% since study of: 07-22-20 FRAX%s: The graph provided illustrates a 25% chance for a major osteoporotic fx and a 8% chance for t he hips probability for fx in 10 years time. IMPRESSION: Osteopenia (T Score between -2.5 and -1). There is slightly increased risk of fracture and the patient may be considered for treatment. Re-Screen 2-5 years. NOTE: T-SCORE=SD OF THE YOUNG ADULT MEAN.
== END | disposition home or self-care (01) ==
LOC: RADBDWWP 11:02
PROVIDERS: ATTEND Internal Medicine Geriatric Medicine
DX: M85.89 Other specified disorders of bone density and structure, multiple sites (principal); M81.0 Age-related osteoporosis without current pathological fracture
CPT/HCPCS: 77080

== ENCOUNTER → 2024-11-28 | Outpatient (CLI) | payer MEDICARE ==
--- NOTE | 2024-11-29 07:43 | MM ---
Reason for Exam: Screening (asymptomatic). Last screening mammogram was performed 12 month(s) ago. Patient History: Menarche at age 14. First Full-Term at age 22. Right ovary removed at age 30. Postmenopausal. Cyst Aspiration on the Right side. Cyst Aspiration on the Left side. Excisional Biopsy on the Right side. Excisional Biopsy on the Left side. Maternal aunt had breast cancer. Sister had breast cancer, age 75. Risk Values: Azucena 5 year model risk: 4.9%. NCI Lifetime model risk: 8.7%. Prior Study Comparison: 09/12/2021 Bilateral Screening Mammogram, [facility]. 11/04/2022 Bilateral MG 3D screening mammo w/cad, [facility]. 11/24/2023 Bilateral MG 3D screening mammo w/cad, [facility]. Tissue Density: There are scattered areas of fibroglandular density. Findings: Analyzed By CAD. There is no suspicious group of microcalcifications or new suspicious mass in either breast. Overall Assessment: Negative, BI-RAD 1 Management: Screening Mammogram of both breasts in 1 year. See note below in regards to patient's increased 5 year Azucena score. Patient should continue monthly self-breast exams. A clinical breast exam by your physician is recommended on an annual basis. This exam should not preclude additional follow-up of suspicious palpable abnormalities. Note on Azucena scores and lifetime risk: 1. A Azucena score greater than 3% is considered moderate risk. If this is the case, consider specialist referral to assess eligibility for a risk reducing agent. 2. If overall lifetime risk for the development of breast cancer is 20% or higher, the patient may qualify for future screening with alternating mammogram and breast MRI. [facility], , 11/29/2024 7:41 AM. Electronically signed and approved by: Evelyn Watson M.D. Radiologist
== END | disposition home or self-care (01) ==
LOC: RADMAMWWP 15:46
PROVIDERS: ATTEND Internal Medicine Geriatric Medicine
DX: Z12.31 Encounter for screening mammogram for malignant neoplasm of breast (principal); Z90.721 Acquired absence of ovaries, unilateral; Z80.3 Family history of malignant neoplasm of breast; R92.323 Mammographic fibroglandular density, bilateral breasts
CPT/HCPCS: 77063; 77067